=== PATIENT | female | born 1990 | race African-American/Black ===

== ENCOUNTER 2017-01-23 15:13 | Inpatient (IN) | payer MEDICAID ==
[2017-01-23] VITALS (7 sets, daily range): BP systolic 127–158; BP diastolic 70–95
[~2017-01-23] VITALS: Ht 167.6 cm; Wt 62.6 kg
[2017-01-23] MEDS ORDERED: ONDANSETRON HCL 4MG/2ML VIAL IV STA (15:35)
[2017-01-23] MEDS ORDERED: SODIUM CHLORIDE 0.9% 1,000 ML IV ONE (15:35)
[2017-01-23 16:07] LABS: BASOPHILS % 0.9 % (0.0-2.0); EOSINOPHILS % 0.1 % (0.0-5.0); HEMATOCRIT. 56.3 % (36.0-48.0); HEMOGLOBIN. 16.7 g/dL (12.0-16.0); LYMPHOCYTES % 11.1 % (20.0-50.0); MEAN CORPUSCULAR HEMOGLOBIN 29.1 pg (28.0-32.0); MEAN CORPUSCULAR VOLUME 97.9 fL (81.0-99.0); MEAN PLATELET VOLUME 8.7 fl (7.4-10.4); MONOCYTES % 5.6 % (2.0-8.0); NEUTROPHILS % 82.3 % (40.0-76.0); PLATELET 341 x1000/uL (130-400); RED BLOOD CELL COUNT 5.75 mill/uL (4.2-5.4); RED CELL DISTRIBUTION WIDTH 14.1 % (11.6-14.6)
[2017-01-23 16:12] LABS: PROTHROMBIN TIME 10.7 sec (9.4-11.6)
[2017-01-23] MEDS ORDERED: MORPHINE SULFATE 4 MG/ML CPJ (NOT FOR IM USE) IV ONE (17:15)
[2017-01-23 17:22] LABS: CHLORIDE 95 mEq/L (98-107)
[2017-01-23 17:33] LABS: CARBON DIOXIDE 7 mEq/L (21-32)
[2017-01-23 18:01] LABS: BETA HYDROXYBUTYRATE 11.2 mMol/L (0.0-0.3)
[2017-01-23] MEDS ORDERED: INSULIN REGULAR (DRIP) 100 UNITS in SODIUM CHLORIDE 0.9% 100 ML IV ONE (18:15)
[2017-01-23] MEDS ORDERED: MORPHINE SULFATE 10 MG/ML CPJ IV ONE (18:15)
[2017-01-23 18:22] LABS: BG BASE EXCESS -30.6 mmol/L (-2.0-2.0); BG CARBOXYHEMOGLOBIN 0.9 % (0.5-1.5); BG FRACTION INSPIRED OXYGEN 32; BG METHEMOGLOBIN 0.4 % (0.0-1.5); BG OXYHEMOGLOBIN 97.7 % (94.0-97.0); BG PCO2 11.6 mmHg (35.0-45.0); BG PH 6.855 (7.350-7.450); BG PO2 183.9 mmHg (75.0-100.0); BG SAMPLE SITE RIGHT BRACHIAL; BG TOTAL HEMOGLOBIN 15.3 g/dL (12.0-18.0); BG VENT MODE NASAL CANNULA
[2017-01-23] MEDS ORDERED: SODIUM BICARBONATE 8.4% 1 MEQ/ML 50ML SYR IV ONE (18:30)
[2017-01-23] MEDS ORDERED: INSULIN R (DRIP) 100 UNITS in SODIUM CHLORIDE 0.9% 100ML IV PRN (19:00)
[2017-01-23 19:27] LABS: CLARITY URINE CLEAR (CLEAR); COLOR URINE YELLOW (YELLOW); GLUCOSE URINE 3+ (NEGATIVE); KETONES URINE 4+ (NEGATIVE); LEUKOCYTE ESTERASE URINE NEGATIVE (NEGATIVE); NITRITE URINE NEGATIVE (NEGATIVE); OCCULT BLOOD URINE NEGATIVE (NEGATIVE); PROTEIN URINE 2+ (NEGATIVE); SPECIFIC GRAVITY URINE 1.029 (1.005-1.030); UROBILINOGEN URINE 0.2 E.U./dL (0.2-1.0)
[2017-01-23 19:36] LABS: *AMPHETAMINES SCREEN URINE NEGATIVE (NEGATIVE); *BARBITURATES SCREEN URINE NEGATIVE (NEGATIVE); *BENZODIAZEPINES SCREEN URINE NEGATIVE (NEGATIVE); *COCAINE SCREEN URINE NEGATIVE (NEGATIVE); METHADONE URINE SCREEN NEGATIVE (NEGATIVE); PHENCYCLIDINE URINE SCREEN NEGATIVE (NEGATIVE)
[2017-01-23 19:37] LABS: CANNABINOID URINE SCREEN PRESUMTIVE POSITIVE (NEGATIVE); OPIATES URINE SCREEN PRESUMTIVE POSITIVE (NEGATIVE)
[2017-01-23 21:59] LABS: CHLORIDE 104 mEq/L (98-107)
[2017-01-23 22:15] LABS: CARBON DIOXIDE 6 mEq/L (21-32)
[2017-01-23] MEDS: MORPHINE SULFATE 4 MG/ML CPJ (NOT FOR IM USE) IV PRN (22:18)
[2017-01-23] MEDS ORDERED: LIDOCAINE HCL/PF 1% 2ML VIAL ONE (23:21)
[2017-01-23] MEDS ORDERED: DEXTROSE 5% WATER 1,000 ML IV SCH (23:30)
[2017-01-23] MEDS ORDERED: ACETAMINOPHEN 325MG TABLET PO PRN (23:30)
[2017-01-23] MEDS ORDERED: ONDANSETRON HCL 4MG/2ML VIAL IV PRN (23:30)
[2017-01-24] VITALS (36 sets, daily range): BP systolic 94–131; BP diastolic 47–107
[2017-01-24] MEDS: SODIUM BICARBONATE 100 MEQ in DEXTROSE 5% WATER 1,000 ML IV SCH ×2 (00:58→10:53)
[2017-01-24 01:08] LABS: CHLORIDE 110 mEq/L (98-107)
[2017-01-24 01:26] LABS: CARBON DIOXIDE 10 mEq/L (21-32)
[2017-01-24 02:08] LABS: BG BASE EXCESS -18.9 mmol/L (-2.0-2.0); BG CARBOXYHEMOGLOBIN 0.9 % (0.5-1.5); BG FRACTION INSPIRED OXYGEN 21; BG METHEMOGLOBIN 0.3 % (0.0-1.5); BG OXYHEMOGLOBIN 96.8 % (94.0-97.0); BG PCO2 23.3 mmHg (35.0-45.0); BG PH 7.156 (7.350-7.450); BG PO2 108.4 mmHg (75.0-100.0); BG SAMPLE SITE RIGHT RADIAL; BG VENT MODE ROOM AIR
[2017-01-24] MEDS: MORPHINE SULFATE 4 MG/ML CPJ (NOT FOR IM USE) IV PRN ×4 (02:29→16:50)
[2017-01-24 05:39] LABS: BASOPHILS % 0.2 % (0.0-2.0); EOSINOPHILS % 0.1 % (0.0-5.0); HEMATOCRIT. 40.7 % (36.0-48.0); LYMPHOCYTES % 10.7 % (20.0-50.0); MEAN CORPUSCULAR HEMOGLOBIN 28.4 pg (28.0-32.0); MEAN CORPUSCULAR VOLUME 89.1 fL (81.0-99.0); MEAN PLATELET VOLUME 7.9 fl (7.4-10.4); PLATELET 246 x1000/uL (130-400); RED BLOOD CELL COUNT 4.57 mill/uL (4.2-5.4); RED CELL DISTRIBUTION WIDTH 13.2 % (11.6-14.6)
[2017-01-24 06:02] LABS: CARBON DIOXIDE 12 mEq/L (21-32); CHLORIDE 108 mEq/L (98-107); HDL CHOLESTEROL 107 mg/dL (40-59); LDL CHOLESTEROL 42 mg/dL (5-100)
[2017-01-24] MEDS: ENOXAPARIN 40MG/0.4ML SYR SUBCUT SCH (09:00)
[2017-01-24 09:11] LABS: CHLORIDE 107 mEq/L (98-107)
[2017-01-24 09:18] LABS: CARBON DIOXIDE 18 mEq/L (21-32)
[2017-01-24] MEDS ORDERED: DEXTROSE 50% WATER 50ML SYRINGE IV PRN ×3 (10:15→18:45)
[2017-01-24] MEDS: BLOOD SUGAR DIAGNOSTIC STRIP TEST SCH ×4 (10:15→21:37)
[2017-01-24] MEDS ORDERED: INSULIN REGULAR (DRIP) 100 UNITS in SODIUM CHLORIDE 0.9% 100 ML IV SCH (11:00)
[2017-01-24 11:47] LABS: BG BASE EXCESS -10.4 mmol/L (-2.0-2.0); BG CARBOXYHEMOGLOBIN 0.7 % (0.5-1.5); BG DEOXYHEMOGLOBIN 1.8 % (0.0-5.0); BG FRACTION INSPIRED OXYGEN 21; BG HCO3 ACT 14.1 mmol/L (22.0-26.0); BG METHEMOGLOBIN 0.3 % (0.0-1.5); BG OXYGEN SATURATION 98.2 % (92.0-98.5); BG OXYHEMOGLOBIN 97.2 % (94.0-97.0); BG PCO2 27.8 mmHg (35.0-45.0); BG PH 7.322 (7.350-7.450); BG PO2 102.6 mmHg (75.0-100.0); BG SAMPLE SITE RIGHT RADIAL; BG TOTAL HEMOGLOBIN 13.3 g/dL (12.0-18.0); BG VENT MODE ROOM AIR
[2017-01-24 12:39] LABS: CARBON DIOXIDE 17 mEq/L (21-32); CHLORIDE 105 mEq/L (98-107)
[2017-01-24] MEDS ORDERED: POTASSIUM CHLORIDE INJ 40 MEQ in DEXT 5% WATER 250 ML IV NR (13:00)
[2017-01-24 16:56] LABS: CARBON DIOXIDE 22 mEq/L (21-32); CHLORIDE 105 mEq/L (98-107)
[2017-01-24] MEDS ORDERED: POTASSIUM CHLORIDE 20MEQ/PACKET PO NR (19:00)
[2017-01-24] MEDS: SODIUM CHLORIDE 0.9% 1,000 ML IV SCH (19:26)
[2017-01-24] MEDS: INSULIN DETEMIR UD 100 UNITS/ML SYR SUBCUT SCH (20:56)
[2017-01-24] MEDS: INSULIN LISPRO 100 UNITS/ML SUBCUT SCH (21:01)
[2017-01-24] MEDS: LORAZEPAM 2MG/ML CPJ IV PRN (21:04)
[2017-01-24] MEDS ORDERED: INSULIN DETEMIR UD 100 UNITS/ML SYR SUBCUT SCH (22:00)
[2017-01-25] VITALS (26 sets, daily range): BP systolic 92–143; BP diastolic 58–89
[2017-01-25] MEDS: MORPHINE SULFATE 10 MG/ML CPJ IV PRN ×5 (00:29→18:16)
[2017-01-25 02:26] LABS: HEMATOCRIT. 40.6 % (36.0-48.0); HEMOGLOBIN. 13.6 g/dL (12.0-16.0); MEAN CORPUSCULAR HEMOGLOBIN 28.4 pg (28.0-32.0); MEAN CORPUSCULAR VOLUME 84.8 fL (81.0-99.0); PLATELET 234 x1000/uL (130-400); RED BLOOD CELL COUNT 4.78 mill/uL (4.2-5.4)
[2017-01-25 02:50] LABS: CARBON DIOXIDE 21 mEq/L (21-32); CHLORIDE 106 mEq/L (98-107)
[2017-01-25] MEDS: INSULIN LISPRO 100 UNITS/ML SUBCUT SCH ×7 (06:22→21:54)
[2017-01-25] MEDS: BLOOD SUGAR DIAGNOSTIC STRIP TEST SCH ×4 (06:23→21:54)
[2017-01-25 07:56] LABS: PLATELET ESTIMATE NORMAL
[2017-01-25 08:14] LABS: EOSINOPHILS % 0.4 % (0.0-5.0); HEMATOCRIT. 41.9 % (36.0-48.0); HEMOGLOBIN. 14.3 g/dL (12.0-16.0); LYMPHOCYTES % 17.5 % (20.0-50.0); MEAN CORPUSCULAR HEMOGLOBIN 29.4 pg (28.0-32.0); MEAN CORPUSCULAR VOLUME 86.1 fL (81.0-99.0); MEAN PLATELET VOLUME 7.2 fl (7.4-10.4); MONOCYTES % 5.7 % (2.0-8.0); NEUTROPHILS % 75.4 % (40.0-76.0); PLATELET 200 x1000/uL (130-400); RED BLOOD CELL COUNT 4.86 mill/uL (4.2-5.4); RED CELL DISTRIBUTION WIDTH 13.1 % (11.6-14.6)
[2017-01-25 08:40] LABS: CARBON DIOXIDE 23 mEq/L (21-32); CHLORIDE 105 mEq/L (98-107)
[2017-01-25] MEDS: ENOXAPARIN 40MG/0.4ML SYR SUBCUT SCH (09:26)
[2017-01-25] MEDS: SODIUM CHLORIDE 0.9% 1,000 ML IV SCH ×2 (12:01→18:45)
[2017-01-25] MEDS: LORAZEPAM 2MG/ML CPJ IV PRN (21:49)
[2017-01-25] MEDS: INSULIN DETEMIR UD 100 UNITS/ML SYR SUBCUT SCH (21:54)
[2017-01-26] VITALS (7 sets, daily range): BP systolic 93–139; BP diastolic 59–86
[2017-01-26] MEDS: SODIUM CHLORIDE 0.9% 1,000 ML IV SCH ×2 (01:45→14:32)
[2017-01-26] MEDS: MORPHINE SULFATE 10 MG/ML CPJ IV PRN ×3 (01:45→16:03)
[2017-01-26] MEDS: BLOOD SUGAR DIAGNOSTIC STRIP TEST SCH ×2 (06:41→12:20)
[2017-01-26] MEDS: INSULIN LISPRO 100 UNITS/ML SUBCUT SCH ×4 (08:15→14:36)
[2017-01-26] MEDS: ENOXAPARIN 40MG/0.4ML SYR SUBCUT SCH (10:07)
== END 2017-01-26 18:05 | disposition home or self-care (01) | DRG 282 ==
LOC: ER 15:33 → MICUSO 18:56 → EDBEDREQTM 19:00 → EDBEDREQ 19:00 → ENRESERV 19:40 → MICUSO 20:30 → 6EST 01-25 17:51
PROVIDERS: ADMIT Internal Medicine; ATTEND Internal Medicine
DX: K85.90 Acute pancreatitis without necrosis or infection, unspecified (principal); E10.10 Type 1 diabetes mellitus with ketoacidosis without coma; Z83.3 Family history of diabetes mellitus; F32.9 Major depressive disorder, single episode, unspecified; D72.829 Elevated white blood cell count, unspecified; R00.0 Tachycardia, unspecified; F10.21 Alcohol dependence, in remission; F41.9 Anxiety disorder, unspecified; Z79.4 Long term (current) use of insulin
CPT/HCPCS: 36415; 36600; 74022; 80048; 80053; 80061; 80305; 80320; 81001; 82010; 82375; 82805; 82962; 83690; 85007; 85025; 85027; 85610; 87040; 87077; 87086; 93970; 96365; 96375; 99291; J1650; J1815; J2060; J2270; J2405; J3480; J3490; J7030; J7040; J7042; J7050; J7060; J7070

== ENCOUNTER 2017-05-14 10:08 | Inpatient (IN) | payer OTHER ==
[~2017-05-14] VITALS: Ht 160 cm; Wt 61.7 kg
[2017-05-14] VITALS (11 sets, daily range): BP systolic 110–141; BP diastolic 61–91
[~2017-05-14 10:08] MED LIST: AMOX500T2 PO
[2017-05-14] MEDS ORDERED: SODIUM CHLORIDE 0.9% 1,000 ML IV ONE (10:35)
[2017-05-14] MEDS ORDERED: LIDOCAINE HCL/PF 1% 2ML VIAL ONE (10:35)
[2017-05-14] MEDS ORDERED: ONDANSETRON HCL 4MG/2ML VIAL IV STA (10:35)
[2017-05-14 11:07] LABS: BASOPHILS % 0.6 % (0.0-2.0); EOSINOPHILS % 0.2 % (0.0-5.0); HEMATOCRIT. 48.5 % (36.0-48.0); LYMPHOCYTES % 10.1 % (20.0-50.0); MEAN CORPUSCULAR HEMOGLOBIN 27.7 pg (28.0-32.0); MEAN CORPUSCULAR VOLUME 89.8 fL (81.0-99.0); MEAN PLATELET VOLUME 7.7 fl (7.4-10.4); MONOCYTES % 3.6 % (2.0-8.0); NEUTROPHILS % 85.5 % (40.0-76.0); PLATELET 400 x1000/uL (130-400); RED BLOOD CELL COUNT 5.41 mill/uL (4.2-5.4); RED CELL DISTRIBUTION WIDTH 14.3 % (11.6-14.6)
[2017-05-14 11:13] LABS: BG BASE EXCESS -21.9 mmol/L (-2.0-2.0); BG CARBOXYHEMOGLOBIN 0.4 % (0.5-1.5); BG DEOXYHEMOGLOBIN 1.9 % (0.0-5.0); BG FRACTION INSPIRED OXYGEN 21; BG HCO3 ACT 4.3 mmol/L (22.0-26.0); BG METHEMOGLOBIN 0.5 % (0.0-1.5); BG OXYGEN SATURATION 98.1 % (92.0-98.5); BG OXYHEMOGLOBIN 97.2 % (94.0-97.0); BG PCO2 12.5 mmHg (35.0-45.0); BG PH 7.155 (7.350-7.450); BG PO2 133.2 mmHg (75.0-100.0); BG SAMPLE SITE RIGHT BRACHIAL; BG TOTAL HEMOGLOBIN 14.4 g/dL (12.0-18.0); BG VENT MODE ROOM AIR
[2017-05-14 11:18] LABS: CHLORIDE 99 mEq/L (98-107); ETHANOL BLOOD < 10 mg/dL
[2017-05-14] MEDS ORDERED: INSULIN REGULAR (DRIP) 100 UNITS in SODIUM CHLORIDE 0.9% 100 ML IV ONE ×2 (11:28→12:00)
[2017-05-14] MEDS ORDERED: MAGNESIUM/ALUMINUM HYDROXIDE/SIMETHICONE 30ML UDC PO STA (11:28)
[2017-05-14] MEDS ORDERED: PANTOPRAZOLE SODIUM 40 MG/VIAL IV ONE (11:30)
[2017-05-14 11:59] LABS: PHOSPHORUS 3.5 mg/dL (2.5-4.9)
[2017-05-14 12:46] LABS: CLARITY URINE CLEAR (CLEAR); COLOR URINE YELLOW (YELLOW); KETONES URINE 4+ (NEGATIVE); LEUKOCYTE ESTERASE URINE NEGATIVE (NEGATIVE); NITRITE URINE NEGATIVE (NEGATIVE); OCCULT BLOOD URINE NEGATIVE (NEGATIVE); PROTEIN URINE 1+ (NEGATIVE); SPECIFIC GRAVITY URINE 1.034 (1.005-1.030); UROBILINOGEN URINE 0.2 E.U./dL (0.2-1.0)
[2017-05-14 13:22] LABS: *COCAINE SCREEN URINE NEGATIVE (NEGATIVE); METHADONE URINE SCREEN NEGATIVE (NEGATIVE); OPIATES URINE SCREEN NEGATIVE (NEGATIVE); PHENCYCLIDINE URINE SCREEN NEGATIVE (NEGATIVE)
[2017-05-14 13:26] LABS: *AMPHETAMINES SCREEN URINE NEGATIVE (NEGATIVE); *BARBITURATES SCREEN URINE NEGATIVE (NEGATIVE); *BENZODIAZEPINES SCREEN URINE NEGATIVE (NEGATIVE)
[2017-05-14 13:45] LABS: CANNABINOID URINE SCREEN PRESUMTIVE POSITIVE (NEGATIVE)
[2017-05-14] MEDS ORDERED: ACETAMINOPHEN 325MG TABLET PO PRN (15:15)
[2017-05-14] MEDS ORDERED: ONDANSETRON HCL 4MG/2ML VIAL IV PRN (15:15)
[2017-05-14] MEDS ORDERED: MORPHINE SULFATE 4 MG/ML CPJ (NOT FOR IM USE) IV PRN (15:15)
[2017-05-14] MEDS ORDERED: SODIUM BICARBONATE 100 MEQ in SODIUM CHLORIDE 0.45% 1,000 ML IV SCH (17:00)
[2017-05-14 17:50] LABS: CHLORIDE 108 mEq/L (98-107)
[2017-05-14] MEDS: SODIUM BICARBONATE 100 MEQ in DEXTROSE 5% WATER 1,000 ML IV SCH (18:40)
[2017-05-14] MEDS: CLINDAMYCIN 600MG PREMIX 50 ML IV SCH (18:42)
[2017-05-14 19:27] LABS: UCG SCREEN NEGATIVE
[2017-05-14] MEDS: HYDROMORPHONE HCL/PF 2MG/ML CPJ IM PRN (20:04)
[2017-05-14 21:28] LABS: CHLORIDE 107 mEq/L (98-107)
[2017-05-14] MEDS: VISCOUS LIDOCAINE 2% 15 ML UDC MM PRN (23:04)
[2017-05-15] VITALS (25 sets, daily range): BP systolic 92–134; BP diastolic 31–79
[2017-05-15 00:55] LABS: CHLORIDE 104 mEq/L (98-107)
[2017-05-15] MEDS: CLINDAMYCIN 600MG PREMIX 50 ML IV SCH ×3 (01:03→19:15)
[2017-05-15] MEDS: HYDROMORPHONE HCL/PF 2MG/ML CPJ IM PRN ×4 (02:29→23:07)
[2017-05-15] MEDS: SODIUM BICARBONATE 100 MEQ in DEXTROSE 5% WATER 1,000 ML IV SCH ×2 (03:30→09:09)
[2017-05-15 05:41] LABS: BASOPHILS % 0.6 % (0.0-2.0); EOSINOPHILS % 1.4 % (0.0-5.0); HEMATOCRIT. 38.5 % (36.0-48.0); HEMOGLOBIN. 12.3 g/dL (12.0-16.0); LYMPHOCYTES % 23.1 % (20.0-50.0); MEAN CORPUSCULAR HEMOGLOBIN 27.5 pg (28.0-32.0); MEAN CORPUSCULAR VOLUME 85.6 fL (81.0-99.0); MEAN PLATELET VOLUME 7.1 fl (7.4-10.4); MONOCYTES % 10.6 % (2.0-8.0); NEUTROPHILS % 64.3 % (40.0-76.0); PLATELET 301 x1000/uL (130-400); RED BLOOD CELL COUNT 4.49 mill/uL (4.2-5.4); RED CELL DISTRIBUTION WIDTH 13.5 % (11.6-14.6)
[2017-05-15 05:49] LABS: CHLORIDE 104 mEq/L (98-107)
[2017-05-15 08:53] LABS: CHLORIDE 99 mEq/L (98-107)
[2017-05-15] MEDS ORDERED: DEXTROSE 50% WATER 50ML SYRINGE IV PRN (09:30)
[2017-05-15] MEDS ORDERED: POTASSIUM CHLORIDE 20MEQ TABLET SR PO NR ×2 (10:00→11:00)
[2017-05-15] MEDS: SODIUM CHLORIDE 0.9% 1,000 ML IV SCH (10:09)
[2017-05-15] MEDS: INSULIN GLARGINE UD 100 UNITS/ML SYR SUBCUT SCH (10:54)
[2017-05-15 11:14] LABS: PHOSPHORUS 2.2 mg/dL (2.5-4.9)
[2017-05-15] MEDS ORDERED: INSULIN LISPRO 100 UNITS/ML SUBCUT NR (12:00)
[2017-05-15] MEDS: BLOOD SUGAR DIAGNOSTIC STRIP TEST SCH ×3 (13:11→21:00)
[2017-05-15] MEDS: INSULIN LISPRO 100 UNITS/ML SUBCUT SCH ×3 (13:20→23:09)
[2017-05-15 15:47] LABS: CHLORIDE 99 mEq/L (98-107)
[2017-05-15] MEDS ORDERED: PANTOPRAZOLE SODIUM 40 MG/VIAL IV SCH (18:00)
[2017-05-15] MEDS ORDERED: MAGNESIUM 1 G PREMIX 100 ML IV NR (20:30)
[2017-05-15] MEDS ORDERED: POTASSIUM PHOS,M-BASIC-D-BASIC 10 MMOL in DEXT 5% WATER 246.6667 ML IV NR (21:00)
[2017-05-16] VITALS (14 sets, daily range): BP systolic 101–132; BP diastolic 58–94
[2017-05-16] MEDS: SODIUM CHLORIDE 0.9% 1,000 ML IV SCH ×2 (03:10→12:01)
[2017-05-16] MEDS: CLINDAMYCIN 600MG PREMIX 50 ML IV SCH ×2 (03:11→10:46)
[2017-05-16 05:39] LABS: BASOPHILS % 0.5 % (0.0-2.0); EOSINOPHILS % 2.3 % (0.0-5.0); LYMPHOCYTES % 24.4 % (20.0-50.0); MEAN CORPUSCULAR HEMOGLOBIN 27.8 pg (28.0-32.0); MEAN CORPUSCULAR VOLUME 85.8 fL (81.0-99.0); MEAN PLATELET VOLUME 7.1 fl (7.4-10.4); MONOCYTES % 9.8 % (2.0-8.0); PLATELET 244 x1000/uL (130-400); RED BLOOD CELL COUNT 4.31 mill/uL (4.2-5.4); RED CELL DISTRIBUTION WIDTH 13.7 % (11.6-14.6)
[2017-05-16 06:15] LABS: CHLORIDE 106 mEq/L (98-107)
[2017-05-16 06:21] LABS: PHOSPHORUS 3.7 mg/dL (2.5-4.9)
[2017-05-16] MEDS ORDERED: POTASSIUM CHLORIDE 20MEQ TABLET SR PO NR (07:00)
[2017-05-16] MEDS: BLOOD SUGAR DIAGNOSTIC STRIP TEST SCH ×2 (07:50→12:07)
[2017-05-16] MEDS: HYDROMORPHONE HCL/PF 2MG/ML CPJ IM PRN ×2 (08:15→14:05)
[2017-05-16] MEDS: INSULIN LISPRO 100 UNITS/ML SUBCUT SCH ×2 (08:23→12:12)
[2017-05-16] MEDS: INSULIN GLARGINE UD 100 UNITS/ML SYR SUBCUT SCH (10:46)
[2017-05-16] MEDS: VISCOUS LIDOCAINE 2% 15 ML UDC MM PRN (12:11)
[2017-05-16] MEDS ORDERED: CLIN300C11 PO (14:03)
== END 2017-05-16 16:38 | disposition home or self-care (01) | DRG 720 ==
LOC: ER 10:08 → CVICU 11:39 → EDBEDREQ 11:46 → ENRESERV 13:37 → 8WST 05-16 11:31
PROVIDERS: ADMIT Internal Medicine; ATTEND Internal Medicine
PROC: 05H933Z Insertion of Infusion Device into Right Brachial Vein, Percutaneous Approach (ICD-10-PCS; principal; 2017-05-15)
PROC: B54MZZA Ultrasonography of Right Upper Extremity Veins, Guidance (ICD-10-PCS; 2017-05-15)
DX: A41.9 Sepsis, unspecified organism (principal); E10.10 Type 1 diabetes mellitus with ketoacidosis without coma; E87.1 Hypo-osmolality and hyponatremia; K04.7 Periapical abscess without sinus; Z79.4 Long term (current) use of insulin; Z83.3 Family history of diabetes mellitus; Z91.410 Personal history of adult physical and sexual abuse; Z91.19 Patient's noncompliance with other medical treatment and regimen; Z79.899 Other long term (current) drug therapy
CPT/HCPCS: 36415; 36569; 36600; 70486; 71045; 76937; 80048; 80053; 80305; 81003; 81025; 82010; 82375; 82805; 82962; 83690; 83735; 84100; 85025; 85610; 87040; 87086; 93005; 96361; 96365; 96366; 96375; 99291; C1725; C1893; C9113; G0482; J1170; J1815; J2270; J2405; J3475; J3490; J7030; J7050; J7060; J7070

== ENCOUNTER 2017-07-10 09:31 | Inpatient (IN) | payer MEDICAID, OTHER ==
[~2017-07-10] VITALS: Ht 160 cm; Wt 64.4 kg
[2017-07-10] VITALS (12 sets, daily range): BP systolic 114–140; BP diastolic 54–89
[~2017-07-10 09:31] MED LIST changes: +CLIN300C11 PO
[2017-07-10] MEDS ORDERED: SODIUM CHLORIDE 0.9% 1000ML BAG (SEPSIS BOLUS) IV ONE (09:45)
[2017-07-10 10:04] LABS: BG BASE EXCESS -28.7 mmol/L (-2.0-2.0); BG CARBOXYHEMOGLOBIN 0.8 % (0.5-1.5); BG DEOXYHEMOGLOBIN 1.4 % (0.0-5.0); BG FRACTION INSPIRED OXYGEN 21; BG METHEMOGLOBIN 0.4 % (0.0-1.5); BG OXYGEN SATURATION 98.6 % (92.0-98.5); BG OXYHEMOGLOBIN 97.4 % (94.0-97.0); BG PCO2 9.4 mmHg (35.0-45.0); BG PH 6.938 (7.350-7.450); BG PO2 158.8 mmHg (75.0-100.0); BG SAMPLE SITE RIGHT BRACHIAL; BG TOTAL HEMOGLOBIN 16.1 g/dL (12.0-18.0); BG VENT MODE ROOM AIR
[2017-07-10] MEDS ORDERED: SODIUM CHLORIDE 0.9% 1,000 ML IV ONE (10:07)
[2017-07-10 10:15] LABS: CLARITY URINE CLEAR (CLEAR); COLOR URINE YELLOW (YELLOW); KETONES URINE 4+ (NEGATIVE); LEUKOCYTE ESTERASE URINE NEGATIVE (NEGATIVE); NITRITE URINE NEGATIVE (NEGATIVE); OCCULT BLOOD URINE TRACE (NEGATIVE); PROTEIN URINE 2+ (NEGATIVE); SPECIFIC GRAVITY URINE 1.034 (1.005-1.030); UROBILINOGEN URINE 0.2 E.U./dL (0.2-1.0)
[2017-07-10] MEDS ORDERED: SODIUM BICARBONATE 8.4% 1 MEQ/ML 50ML SYR IV ONE (10:15)
[2017-07-10] MEDS ORDERED: INSULIN REGULAR (DRIP) 100 UNITS in SODIUM CHLORIDE 0.9% 100 ML IV ONE (10:15)
[2017-07-10] MEDS ORDERED: INSULIN REGULAR (DRIP) 100 UNITS in SODIUM CHLORIDE 0.9% 100 ML IV SCH ×2 (10:30→11:45)
[2017-07-10 10:32] LABS: BASOPHILS % 0.7 % (0.0-2.0); EOSINOPHILS % 0.2 % (0.0-5.0); HEMATOCRIT. 52.9 % (36.0-48.0); HEMOGLOBIN. 15.2 g/dL (12.0-16.0); LYMPHOCYTES % 13.6 % (20.0-50.0); MEAN CORPUSCULAR HEMOGLOBIN 27.8 pg (28.0-32.0); MEAN CORPUSCULAR VOLUME 97.1 fL (81.0-99.0); MEAN PLATELET VOLUME 8.3 fl (7.4-10.4); MONOCYTES % 4.8 % (2.0-8.0); NEUTROPHILS % 80.7 % (40.0-76.0); PLATELET 471 x1000/uL (130-400); RED BLOOD CELL COUNT 5.45 mill/uL (4.2-5.4); RED CELL DISTRIBUTION WIDTH 15.9 % (11.6-14.6)
[2017-07-10 10:34] LABS: CHLORIDE 93 mEq/L (98-107)
[2017-07-10 10:38] LABS: ETHANOL BLOOD < 10 mg/dL
[2017-07-10 10:40] LABS: PARTIAL THROMBOPLASTIN TIME 37.8 sec (23.4-31.0); PHOSPHORUS 7.6 mg/dL (2.5-4.9); PROTHROMBIN TIME 10.6 sec (9.4-11.6)
[2017-07-10 10:42] LABS: *COCAINE SCREEN URINE NEGATIVE (NEGATIVE); METHADONE URINE SCREEN NEGATIVE (NEGATIVE); OPIATES URINE SCREEN NEGATIVE (NEGATIVE); PHENCYCLIDINE URINE SCREEN NEGATIVE (NEGATIVE)
[2017-07-10 10:43] LABS: *AMPHETAMINES SCREEN URINE NEGATIVE (NEGATIVE); *BARBITURATES SCREEN URINE NEGATIVE (NEGATIVE); *BENZODIAZEPINES SCREEN URINE NEGATIVE (NEGATIVE)
[2017-07-10 10:52] LABS: CANNABINOID URINE SCREEN PRESUMTIVE POSITIVE (NEGATIVE)
[2017-07-10] MEDS ORDERED: SODIUM BICARBONATE 100 MEQ in SODIUM CHLORIDE 0.45% 1,000 ML IV SCH (11:00)
[2017-07-10 11:14] LABS: HCG SCREEN NEGATIVE
[2017-07-10] MEDS ORDERED: CEFTRIAXONE 1 G PREMIX 50 ML IV ONE (11:15)
[2017-07-10] MEDS ORDERED: KETOROLAC 30MG/ML VIAL IV ONE (11:30)
[2017-07-10] MEDS ORDERED: IPRATROPIUM/ALBUTEROL 0.5-3(2.5)MG/3ML NEB INH PRN (11:45)
[2017-07-10] MEDS ORDERED: ONDANSETRON HCL 4MG/2ML VIAL IV PRN (11:45)
[2017-07-10] MEDS ORDERED: SODIUM CHLORIDE 0.9% 1,000 ML IV SCH (11:45)
[2017-07-10 12:20] LABS: BETA HYDROXYBUTYRATE 12.3 mMol/L (0.0-0.3)
[2017-07-10 12:22] LABS: CHLORIDE 104 mEq/L (98-107)
[2017-07-10] MEDS ORDERED: ONDANSETRON HCL 4MG/2ML VIAL IV ONE (12:45)
[2017-07-10] MEDS ORDERED: MORPHINE SULFATE 4 MG/ML CPJ (NOT FOR IM USE) IV ONE (12:45)
[2017-07-10] MEDS ORDERED: HYDROCODONE/ACETAMINOPHEN 5/325MG TABLET PO PRN (14:30)
[2017-07-10 15:40] LABS: CREATINE KINASE 51 IU/L (26-192)
[2017-07-10 15:41] LABS: CREATINE KINASE MB FRACTION 1.3 ng/mL (0.5-3.6)
[2017-07-10] MEDS: LORAZEPAM 2MG/ML CPJ IV PRN (17:16)
[2017-07-10] MEDS: POTASSIUM CHLORIDE INJ 20 MEQ in DEXT 5%/0.9% NACL 1,000 ML IV SCH (17:17)
[2017-07-10] MEDS ORDERED: DEXTROSE 50% WATER 50ML SYRINGE IV PRN ×2 (20:00)
[2017-07-10] MEDS ORDERED: INSULIN REGULAR (DRIP) 100 UNITS in SODIUM CHLORIDE 0.9% 99 ML IV SCH (20:00)
[2017-07-10] MEDS: BLOOD SUGAR DIAGNOSTIC STRIP TEST SCH ×4 (20:13→23:00)
[2017-07-10] MEDS: ENOXAPARIN 40MG/0.4ML SYR SUBCUT SCH (20:35)
[2017-07-10 21:34] LABS: CHLORIDE 110 mEq/L (98-107)
[2017-07-10] MEDS ORDERED: PNEUMOCOCCAL 23-VAL P-SAC VAC 0.5 ML IM ONE (22:00)
[2017-07-11] VITALS (46 sets, daily range): BP systolic 107–147; BP diastolic 62–110
[2017-07-11] MEDS: BLOOD SUGAR DIAGNOSTIC STRIP TEST SCH ×16 (00:08→20:00)
[2017-07-11 00:19] LABS: CREATINE KINASE 46 IU/L (26-192)
[2017-07-11 00:20] LABS: CREATINE KINASE MB FRACTION 1.5 ng/mL (0.5-3.6)
[2017-07-11 01:01] LABS: CHLORIDE 116 mEq/L (98-107)
[2017-07-11] MEDS: POTASSIUM CHLORIDE INJ 20 MEQ in DEXT 5%/0.9% NACL 1,000 ML IV SCH ×2 (01:46→09:12)
[2017-07-11 06:05] LABS: CHLORIDE 113 mEq/L (98-107)
[2017-07-11] MEDS ORDERED: SODIUM BICARBONATE 8.4% 1 MEQ/ML 50ML SYR IV NR (07:00)
[2017-07-11] MEDS: MORPHINE SULFATE 4 MG/ML CPJ (NOT FOR IM USE) IV PRN ×4 (07:08→21:28)
[2017-07-11] MEDS ORDERED: VANCOMYCIN 1,250 MG in DEXT 5% WATER 250 ML IV SCH (09:00)
[2017-07-11] MEDS: LORAZEPAM 2MG/ML CPJ IV PRN ×2 (09:32→23:28)
[2017-07-11 09:33] LABS: BG BASE EXCESS -6.9 mmol/L (-2.0-2.0); BG CARBOXYHEMOGLOBIN 0.8 % (0.5-1.5); BG DEOXYHEMOGLOBIN 1.4 % (0.0-5.0); BG FRACTION INSPIRED OXYGEN 21; BG HCO3 ACT 17.4 mmol/L (22.0-26.0); BG METHEMOGLOBIN 0.2 % (0.0-1.5); BG OXYGEN SATURATION 98.6 % (92.0-98.5); BG OXYHEMOGLOBIN 97.6 % (94.0-97.0); BG PCO2 31.4 mmHg (35.0-45.0); BG PH 7.362 (7.350-7.450); BG SAMPLE SITE RIGHT BRACHIAL; BG TOTAL HEMOGLOBIN 12.6 g/dL (12.0-18.0); BG VENT MODE ROOM AIR
[2017-07-11] MEDS: PIPERACILLIN/TAZ 3.375G PREMIX 50 ML IV SCH ×2 (09:55→17:22)
[2017-07-11] MEDS ORDERED: DEXTROSE 50% WATER 50ML SYRINGE IV PRN (13:15)
[2017-07-11 13:27] LABS: CHLORIDE 110 mEq/L (98-107)
[2017-07-11 14:01] LABS: HEMATOCRIT. 36.1 % (36.0-48.0); HEMOGLOBIN. 11.6 g/dL (12.0-16.0); MEAN CORPUSCULAR VOLUME 87.1 fL (81.0-99.0); PLATELET 267 x1000/uL (130-400); RED BLOOD CELL COUNT 4.14 mill/uL (4.2-5.4); RED CELL DISTRIBUTION WIDTH 15.4 % (11.6-14.6)
[2017-07-11] MEDS: INSULIN GLARGINE UD 100 UNITS/ML SYR SUBCUT SCH (14:12)
[2017-07-11] MEDS: INSULIN LISPRO 100 UNITS/ML SUBCUT SCH ×2 (14:12→17:25)
[2017-07-11] MEDS: VANCOMYCIN 1250MG in DEXTROSE 5% WATER 250ML IV SCH ×2 (16:56→23:33)
[2017-07-11] MEDS: ENOXAPARIN 40MG/0.4ML SYR SUBCUT SCH (17:22)
[2017-07-11 19:07] LABS: CHLORIDE 105 mEq/L (98-107)
[2017-07-11 23:35] LABS: PLATELET ESTIMATE NORMAL
[2017-07-12] VITALS (30 sets, daily range): BP systolic 109–135; BP diastolic 61–88
[2017-07-12 01:22] LABS: CHLORIDE 111 mEq/L (98-107)
[2017-07-12] MEDS: MORPHINE SULFATE 4 MG/ML CPJ (NOT FOR IM USE) IV PRN ×3 (02:21→15:05)
[2017-07-12] MEDS: PIPERACILLIN/TAZ 3.375G PREMIX 50 ML IV SCH ×3 (02:21→18:04)
[2017-07-12] MEDS: INSULIN LISPRO 100 UNITS/ML SUBCUT SCH ×5 (04:00→17:59)
[2017-07-12] MEDS: BLOOD SUGAR DIAGNOSTIC STRIP TEST SCH ×6 (04:52→17:13)
[2017-07-12 05:32] LABS: BASOPHILS % 0.3 % (0.0-2.0); EOSINOPHILS % 1.3 % (0.0-5.0); HEMATOCRIT. 32.9 % (36.0-48.0); HEMOGLOBIN. 11.1 g/dL (12.0-16.0); LYMPHOCYTES % 25.5 % (20.0-50.0); MEAN CORPUSCULAR HEMOGLOBIN 28.8 pg (28.0-32.0); MEAN CORPUSCULAR VOLUME 85.8 fL (81.0-99.0); MEAN PLATELET VOLUME 7.1 fl (7.4-10.4); MONOCYTES % 9.5 % (2.0-8.0); NEUTROPHILS % 63.4 % (40.0-76.0); PLATELET 221 x1000/uL (130-400); RED BLOOD CELL COUNT 3.83 mill/uL (4.2-5.4); RED CELL DISTRIBUTION WIDTH 14.9 % (11.6-14.6)
[2017-07-12 05:51] LABS: CHLORIDE 108 mEq/L (98-107)
[2017-07-12] MEDS: VANCOMYCIN 1250MG in DEXTROSE 5% WATER 250ML IV SCH ×2 (08:17→15:10)
[2017-07-12] MEDS ORDERED: LORAZEPAM 0.5MG TABLET PO PRN (08:30)
[2017-07-12] MEDS ORDERED: OXYCODONE HCL/ACETAMINOPHEN 5/325MG TABLET PO PRN (08:30)
[2017-07-12] MEDS ORDERED: POTASSIUM CHLORIDE 20MEQ/PACKET PO SCH (08:30)
[2017-07-12] MEDS ORDERED: NON FORMULARY PATIENT HOME MED EA XX SCH (08:30)
[2017-07-12] MEDS ORDERED: PANTOPRAZOLE SODIUM 40 MG/VIAL IV SCH (09:00)
[2017-07-12] MEDS ORDERED: SODIUM CHLORIDE 0.45% 1,000 ML IV SCH (09:00)
[2017-07-12] MEDS ORDERED: QUETIAPINE FUMARATE 50MG TABLET PO SCH (09:00)
[2017-07-12] MEDS: INSULIN GLARGINE UD 100 UNITS/ML SYR SUBCUT SCH (10:19)
[2017-07-12] MEDS: METHYLPHENIDATE HCL 5MG TABLET PO SCH ×2 (11:13→15:10)
[2017-07-12] MEDS: CLINDAMYCIN HCL 150MG CAPSULE PO SCH ×2 (12:24→18:04)
[2017-07-12 15:23] LABS: CHLORIDE 106 mEq/L (98-107)
[2017-07-12] MEDS: LORAZEPAM 2MG/ML CPJ IV PRN (17:56)
[2017-07-12] MEDS: ENOXAPARIN 40MG/0.4ML SYR SUBCUT SCH (18:00)
[2017-07-12] MEDS ORDERED: INSULIN GLARGINE UD 100 UNITS/ML SYR SUBCUT SCH (22:00)
== END 2017-07-12 19:40 | disposition left against medical advice (07) | DRG 52 ==
LOC: ER 09:43 → MICUNO 10:23 → EDBEDREQ 10:28 → EDBEDREQTM 10:28 → ENRESERV 17:17 → 6EST 07-12 15:30
PROVIDERS: ADMIT Internal Medicine; ATTEND Internal Medicine
DX: G93.41 Metabolic encephalopathy (principal); G92 Toxic encephalopathy; E11.10 Type 2 diabetes mellitus with ketoacidosis without coma; N17.9 Acute kidney failure, unspecified; R65.10 Systemic inflammatory response syndrome (SIRS) of non-infectious origin without acute organ dysfunction; E87.1 Hypo-osmolality and hyponatremia; E86.0 Dehydration; K20.9 Esophagitis, unspecified; D72.829 Elevated white blood cell count, unspecified; E87.6 Hypokalemia; Z53.21 Procedure and treatment not carried out due to patient leaving prior to being seen by health care provider; Z79.4 Long term (current) use of insulin; Z91.14 Patient's other noncompliance with medication regimen
CPT/HCPCS: 36415; 36600; 70450; 71045; 80048; 80053; 80202; 80305; 81003; 81025; 82010; 82375; 82550; 82553; 82805; 82962; 83036; 83605; 83690; 83735; 83880; 83935; 83937; 84100; 84484; 84703; 85007; 85025; 85027; 85610; 85730; 86850; 86900; 87040; 87086; 93005; 93970; 96365; 96367; 96375; 96376; 99291; C9113; G0482; J0696; J1650; J1815; J1885; J2060; J2270; J2405; J2543; J3370; J3480; J3490; J7030; J7042; J7050; J7060; J7620

== ENCOUNTER 2017-08-04 14:27 | Inpatient (IN) | payer MEDICAID ==
[2017-08-04] VITALS (9 sets, daily range): BP systolic 132–158; BP diastolic 85–108
[~2017-08-04] VITALS: Ht 165.1 cm; Wt 55.8 kg
[2017-08-04] MEDS ORDERED: SODIUM CHLORIDE 0.9% 1,000 ML IV ONE ×3 (14:37→15:15)
[2017-08-04 14:59] LABS: HEMATOCRIT. 44.7 % (36.0-48.0); HEMOGLOBIN. 13.3 g/dL (12.0-16.0); MEAN CORPUSCULAR HEMOGLOBIN 28.4 pg (28.0-32.0); MEAN CORPUSCULAR VOLUME 95.6 fL (81.0-99.0); PLATELET 475 x1000/uL (130-400); RED BLOOD CELL COUNT 4.68 mill/uL (4.2-5.4)
[2017-08-04 15:04] LABS: CHLORIDE 93 mEq/L (98-107)
[2017-08-04 15:05] LABS: INR 1.1
[2017-08-04 15:09] LABS: BG BASE EXCESS -31.8 mmol/L (-2.0-2.0); BG CARBOXYHEMOGLOBIN 0.4 % (0.5-1.5); BG DEOXYHEMOGLOBIN 1.4 % (0.0-5.0); BG FRACTION INSPIRED OXYGEN 21; BG HCO3 ACT 1.4 mmol/L (22.0-26.0); BG METHEMOGLOBIN 0.4 % (0.0-1.5); BG OXYGEN SATURATION 98.6 % (92.0-98.5); BG OXYHEMOGLOBIN 97.8 % (94.0-97.0); BG PCO2 8.9 mmHg (35.0-45.0); BG PH 6.816 (7.350-7.450); BG SAMPLE SITE RIGHT RADIAL; BG TOTAL HEMOGLOBIN 13.8 g/dL (12.0-18.0); BG VENT MODE ROOM AIR
[2017-08-04] MEDS ORDERED: INSULIN REGULAR (DRIP) 100 UNITS in SODIUM CHLORIDE 0.9% 100 ML IV ONE (15:15)
[2017-08-04] MEDS ORDERED: INSULIN REGULAR (DRIP) 100 UNITS in SODIUM CHLORIDE 0.9% 99 ML IV ONE (15:30)
[2017-08-04 15:44] LABS: PLATELET ESTIMATE DECREASED
[2017-08-04] MEDS ORDERED: IPRATROPIUM/ALBUTEROL 0.5-3(2.5)MG/3ML NEB HHN PRN (16:30)
[2017-08-04] MEDS ORDERED: SODIUM BICARBONATE 8.4% 1 MEQ/ML 50ML SYR IV NR (17:00)
[2017-08-04 17:09] LABS: CLARITY URINE CLOUDY (CLEAR); COLOR URINE YELLOW (YELLOW); KETONES URINE 4+ (NEGATIVE); LEUKOCYTE ESTERASE URINE NEGATIVE (NEGATIVE); NITRITE URINE NEGATIVE (NEGATIVE); OCCULT BLOOD URINE TRACE (NEGATIVE); PROTEIN URINE 1+ (NEGATIVE); UROBILINOGEN URINE 0.2 E.U./dL (0.2-1.0)
[2017-08-04] MEDS ORDERED: INSULIN REGULAR (DRIP) 100 UNITS in SODIUM CHLORIDE 0.9% 100 ML IV SCH (17:14)
[2017-08-04] MEDS ORDERED: CLONIDINE 0.1MG TABLET PO PRN (17:15)
[2017-08-04] MEDS ORDERED: ENOXAPARIN 40MG/0.4ML SYR SUBCUT SCH (17:15)
[2017-08-04] MEDS ORDERED: ONDANSETRON HCL 4MG/2ML VIAL IV PRN (17:15)
[2017-08-04] MEDS ORDERED: IPRATROPIUM/ALBUTEROL 0.5-3(2.5)MG/3ML NEB INH PRN (17:15)
[2017-08-04] MEDS ORDERED: GUAIFENESIN 200MG/10ML SUGAR FREE UDC PO PRN (17:15)
[2017-08-04] MEDS ORDERED: DEXTROSE 50% WATER 50ML SYRINGE IV PRN ×2 (17:15)
[2017-08-04 17:33] LABS: *AMPHETAMINES SCREEN URINE NEGATIVE (NEGATIVE); *BARBITURATES SCREEN URINE NEGATIVE (NEGATIVE); *BENZODIAZEPINES SCREEN URINE NEGATIVE (NEGATIVE); *COCAINE SCREEN URINE NEGATIVE (NEGATIVE); METHADONE URINE SCREEN NEGATIVE (NEGATIVE); OPIATES URINE SCREEN NEGATIVE (NEGATIVE)
[2017-08-04 17:34] LABS: CANNABINOID URINE SCREEN NEGATIVE (NEGATIVE); PHENCYCLIDINE URINE SCREEN NEGATIVE (NEGATIVE)
[2017-08-04] MEDS ORDERED: SODIUM CHLORIDE 0.9% 1,000 ML IV SCH (18:30)
[2017-08-04] MEDS: BLOOD SUGAR DIAGNOSTIC STRIP TEST SCH ×3 (21:13→23:58)
[2017-08-04 22:07] LABS: CHLORIDE 110 mEq/L (98-107)
[2017-08-04 22:16] LABS: CREATINE KINASE 140 IU/L (26-192)
[2017-08-04 22:17] LABS: CREATINE KINASE MB FRACTION 1.7 ng/mL (0.5-3.6)
[2017-08-04] MEDS: METOCLOPRAMIDE HCL 10MG/2ML VIAL IV SCH (23:30)
[2017-08-04] MEDS: PANTOPRAZOLE SODIUM 40 MG/VIAL IV SCH (23:34)
[2017-08-05] VITALS (40 sets, daily range): BP systolic 112–150; BP diastolic 64–98
[2017-08-05 01:13] LABS: CHLORIDE 113 mEq/L (98-107)
[2017-08-05 01:19] LABS: BETA HYDROXYBUTYRATE 4.9 mMol/L (0.0-0.3)
[2017-08-05] MEDS: DEXT 5%/0.9% NACL 1,000 ML IV SCH ×2 (02:00→08:45)
[2017-08-05 05:43] LABS: CHLORIDE 115 mEq/L (98-107)
[2017-08-05 05:56] LABS: BETA HYDROXYBUTYRATE 2.8 mMol/L (0.0-0.3); CREATINE KINASE 82 IU/L (26-192); LDL CHOLESTEROL 65 mg/dL (5-100)
[2017-08-05 05:58] LABS: HDL CHOLESTEROL 76 mg/dL (40-59)
[2017-08-05 05:59] LABS: CREATINE KINASE MB FRACTION 1.4 ng/mL (0.5-3.6)
[2017-08-05 07:18] LABS: BG BASE EXCESS -11.4 mmol/L (-2.0-2.0); BG CARBOXYHEMOGLOBIN 0.7 % (0.5-1.5); BG HCO3 ACT 12.1 mmol/L (22.0-26.0); BG METHEMOGLOBIN 0.3 % (0.0-1.5); BG PCO2 22.7 mmHg (35.0-45.0); BG PH 7.345 (7.350-7.450); BG PO2 104.6 mmHg (75.0-100.0); BG SAMPLE SITE RIGHT RADIAL; BG VENT MODE ROOM AIR
[2017-08-05] MEDS: METOCLOPRAMIDE HCL 10MG/2ML VIAL IV SCH ×2 (08:45→21:17)
[2017-08-05] MEDS: PANTOPRAZOLE SODIUM 40 MG/VIAL IV SCH (08:45)
[2017-08-05] MEDS ORDERED: INSULIN REGULAR (DRIP) 100 UNITS in SODIUM CHLORIDE 0.9% 100 ML IV SCH (09:04)
[2017-08-05] MEDS ORDERED: DEXTROSE 50% WATER 50ML SYRINGE IV PRN ×3 (09:15→11:00)
[2017-08-05 09:24] LABS: CHLORIDE 116 mEq/L (98-107)
[2017-08-05] MEDS ORDERED: BLOOD SUGAR DIAGNOSTIC STRIP TEST SCH (10:00)
[2017-08-05] MEDS ORDERED: HYDROCODONE/ACETAMINOPHEN 5/325MG TABLET PO PRN (11:00)
[2017-08-05] MEDS ORDERED: MORPHINE SULFATE 4 MG/ML CPJ (NOT FOR IM USE) IV PRN (11:00)
[2017-08-05] MEDS ORDERED: POTASSIUM CHLORIDE 20MEQ TABLET SR PO NR (11:00)
[2017-08-05] MEDS: BLOOD SUGAR DIAGNOSTIC STRIP TEST SCH ×3 (11:30→21:47)
[2017-08-05] MEDS: INSULIN LISPRO 100 UNITS/ML SUBCUT SCH ×3 (12:00→21:47)
[2017-08-05 12:28] LABS: CHLORIDE 113 mEq/L (98-107)
[2017-08-05 12:29] LABS: BASOPHILS % 0.6 % (0.0-2.0); HEMOGLOBIN. 11.5 g/dL (12.0-16.0); LYMPHOCYTES % 9.3 % (20.0-50.0); MEAN CORPUSCULAR HEMOGLOBIN 28.4 pg (28.0-32.0); MEAN CORPUSCULAR VOLUME 86.6 fL (81.0-99.0); MONOCYTES % 14.4 % (2.0-8.0); NEUTROPHILS % 75.7 % (40.0-76.0); PLATELET 307 x1000/uL (130-400); RED BLOOD CELL COUNT 4.05 mill/uL (4.2-5.4); RED CELL DISTRIBUTION WIDTH 15.6 % (11.6-14.6)
[2017-08-05] MEDS ORDERED: LIDOCAINE HCL/PF 1% 2ML VIAL ONE ×2 (14:52→15:34)
[2017-08-05 20:53] LABS: BG BASE EXCESS -11.3 mmol/L (-2.0-2.0); BG CARBOXYHEMOGLOBIN 0.3 % (0.5-1.5); BG DEOXYHEMOGLOBIN 2.2 % (0.0-5.0); BG FRACTION INSPIRED OXYGEN 21; BG HCO3 ACT 12.5 mmol/L (22.0-26.0); BG METHEMOGLOBIN 0.3 % (0.0-1.5); BG OXYGEN SATURATION 97.8 % (92.0-98.5); BG OXYHEMOGLOBIN 97.2 % (94.0-97.0); BG PH 7.353 (7.350-7.450); BG SAMPLE SITE LEFT RADIAL; BG VENT MODE ROOM AIR
[2017-08-05] MEDS ORDERED: OXYC-105 PO (21:27)
[2017-08-05] MEDS ORDERED: QUET50TA PO (22:51)
[2017-08-05] MEDS ORDERED: LORAZEPAM 1MG TABLET PO PRN (23:00)
[2017-08-05] MEDS: QUETIAPINE FUMARATE 50MG TABLET PO SCH (23:29)
[2017-08-05] MEDS: OXYCODONE HCL/ACETAMINOPHEN 5/325MG TABLET PO PRN (23:31)
[2017-08-06] VITALS (7 sets, daily range): BP systolic 93–126; BP diastolic 52–80
[2017-08-06] MEDS: CLINDAMYCIN 600MG PREMIX 50 ML IV SCH ×2 (01:16→08:56)
[2017-08-06] MEDS: AMPICILLIN SOD/SULBACTAM NA 3 G in SODIUM CHLORIDE 0.9% 100 ML IV SCH ×3 (01:16→14:10)
[2017-08-06] MEDS: OXYCODONE HCL/ACETAMINOPHEN 5/325MG TABLET PO PRN ×2 (05:53→14:04)
[2017-08-06] MEDS: BLOOD SUGAR DIAGNOSTIC STRIP TEST SCH ×3 (06:39→18:20)
[2017-08-06] MEDS: INSULIN LISPRO 100 UNITS/ML SUBCUT SCH ×3 (06:56→18:29)
[2017-08-06] MEDS: QUETIAPINE FUMARATE 50MG TABLET PO SCH (08:56)
[2017-08-06] MEDS: PANTOPRAZOLE SODIUM 40 MG/VIAL IV SCH (08:56)
[2017-08-06] MEDS: METOCLOPRAMIDE HCL 10MG/2ML VIAL IV SCH (08:56)
[2017-08-06] MEDS ORDERED: INSULIN GLARGINE UD 100 UNITS/ML SYR SUBCUT SCH (22:00)
== END 2017-08-06 20:50 | disposition home or self-care (01) | DRG 720 ==
LOC: EDBEDREQSVC 15:23 → EDBEDREQ 15:23 → EDBEDREQTM 15:23 → ER 15:37 → MICUSO 16:23 → ENRESERV 19:21 → MICUNO 08-05 11:07 → 7WST 08-05 19:49
PROVIDERS: ADMIT Internal Medicine; ATTEND Internal Medicine
DX: A41.9 Sepsis, unspecified organism (principal); J96.00 Acute respiratory failure, unspecified whether with hypoxia or hypercapnia; G93.41 Metabolic encephalopathy; E10.10 Type 1 diabetes mellitus with ketoacidosis without coma; K31.84 Gastroparesis; E10.43 Type 1 diabetes mellitus with diabetic autonomic (poly)neuropathy; E44.1 Mild protein-calorie malnutrition; E87.1 Hypo-osmolality and hyponatremia; E87.8 Other disorders of electrolyte and fluid balance, not elsewhere classified; K04.7 Periapical abscess without sinus; Z91.14 Patient's other noncompliance with medication regimen; Z68.20 Body mass index [BMI] 20.0-20.9, adult
CPT/HCPCS: 36415; 36600; 71045; 80048; 80053; 80061; 80305; 81003; 82010; 82375; 82550; 82553; 82805; 82962; 83036; 84145; 84484; 85025; 85610; 87040; 93005; 96361; 96365; 96375; 97116; 97162; 99291; C9113; J0295; J1650; J1815; J2270; J2405; J2765; J3490; J7030; J7042; J7050

== ENCOUNTER 2018-02-15 12:24 | Inpatient (IN) | payer MEDICAID ==
[~2018-02-15] VITALS: Ht 154.9 cm; Wt 59.9 kg
[2018-02-15] VITALS (26 sets, daily range): BP systolic 131–156; BP diastolic 63–107
[~2018-02-15 12:24] MED LIST changes: +OXYC-105 PO; +QUET50TA PO
[2018-02-15] MEDS ORDERED: SODIUM CHLORIDE 0.9% 1,000 ML IV ONE ×2 (12:34→15:24)
[2018-02-15] MEDS ORDERED: ETOMIDATE 2MG/ML 10ML VIAL IV ONE ×2 (12:45)
[2018-02-15] MEDS ORDERED: INSULIN REGULAR (DRIP) 100 UNITS in SODIUM CHLORIDE 0.9% 100 ML IV ONE (12:45)
[2018-02-15] MEDS ORDERED: SODIUM CHLORIDE 0.9% 1000ML BAG (SEPSIS BOLUS) IV ONE (12:45)
[2018-02-15] MEDS ORDERED: MIDAZOLAM HCL 50 MG in DEXTROSE 5% WATER 40 ML IV ONE (12:45)
[2018-02-15] MEDS ORDERED: SUCCINYLCHOLINE CHLORIDE 200MG/10ML IV ONE ×2 (12:45)
[2018-02-15] MEDS ORDERED: INSULIN REGULAR (DRIP) 100 UNITS in SODIUM CHLORIDE 0.9% 99 ML IV ONE (13:04)
[2018-02-15 13:10] LABS: HEMATOCRIT. 50.1 % (36.0-48.0); HEMOGLOBIN. 13.2 g/dL (12.0-16.0); MEAN CORPUSCULAR HEMOGLOBIN 27.4 pg (28.0-32.0); MEAN CORPUSCULAR VOLUME 103.4 fL (81.0-99.0); PLATELET 496 x1000/uL (130-400); RED BLOOD CELL COUNT 4.84 mill/uL (4.2-5.4); RED CELL DISTRIBUTION WIDTH 19.1 % (11.6-14.6)
[2018-02-15] MEDS ORDERED: MIDAZOLAM HCL 2 MG/2 ML VIAL IV ONE (13:15)
[2018-02-15 13:21] LABS: PARTIAL THROMBOPLASTIN TIME 35.5 sec (23.4-31.0); PROTHROMBIN TIME 9.6 sec (9.1-11.1)
[2018-02-15 13:27] LABS: BG BASE EXCESS -32.2 mmol/L (-2.0-2.0); BG CARBOXYHEMOGLOBIN 0.3 % (0.5-1.5); BG DEOXYHEMOGLOBIN 0.3 % (0.0-5.0); BG FRACTION INSPIRED OXYGEN 100; BG HCO3 ACT 1.7 mmol/L (22.0-26.0); BG METHEMOGLOBIN 0.5 % (0.0-1.5); BG OXYGEN SATURATION 99.7 % (92.0-98.5); BG OXYHEMOGLOBIN 98.9 % (94.0-97.0); BG PCO2 12.1 mmHg (35.0-45.0); BG SAMPLE SITE RIGHT RADIAL; BG TIDAL VOLUME(mL) 400 mL; BG TOTAL HEMOGLOBIN 11.7 g/dL (12.0-18.0); BG VENT MODE VENT - A/C; BG VENT RATE 20 set
[2018-02-15 13:33] LABS: CLARITY URINE CLOUDY (CLEAR); COLOR URINE YELLOW (YELLOW); KETONES URINE 4+ (NEGATIVE); LEUKOCYTE ESTERASE URINE NEGATIVE (NEGATIVE); NITRITE URINE NEGATIVE (NEGATIVE); OCCULT BLOOD URINE NEGATIVE (NEGATIVE); PROTEIN URINE 1+ (NEGATIVE); SPECIFIC GRAVITY URINE 1.029 (1.005-1.030); UROBILINOGEN URINE 0.2 E.U./dL (0.2-1.0)
[2018-02-15 13:33] LABS: HCG SCREEN NEGATIVE
[2018-02-15 13:37] LABS: PLATELET ESTIMATE INCREASED
[2018-02-15] MEDS ORDERED: SODIUM BICARBONATE 8.4% 1 MEQ/ML 50ML SYR IV ONE ×3 (13:45→17:15)
[2018-02-15] MEDS: SODIUM CHLORIDE 0.45% 1,000 ML IV SCH ×2 (13:45→17:00)
[2018-02-15] MEDS ORDERED: IPRATROPIUM/ALBUTEROL 0.5-3(2.5)MG/3ML NEB HHN PRN (13:45)
[2018-02-15] MEDS ORDERED: ONDANSETRON HCL 4MG/2ML INJ IV PRN (13:45)
[2018-02-15] MEDS ORDERED: ACETAMINOPHEN 325MG TABLET PO PRN (13:45)
[2018-02-15 14:20] LABS: CHLORIDE 95 mEq/L (98-107)
[2018-02-15 14:20] LABS: *AMPHETAMINES SCREEN URINE NEGATIVE (NEGATIVE); *BARBITURATES SCREEN URINE NEGATIVE (NEGATIVE); *BENZODIAZEPINES SCREEN URINE NEGATIVE (NEGATIVE); *COCAINE SCREEN URINE NEGATIVE (NEGATIVE); METHADONE URINE SCREEN NEGATIVE (NEGATIVE)
[2018-02-15 14:21] LABS: CANNABINOID URINE SCREEN NEGATIVE (NEGATIVE); OPIATES URINE SCREEN NEGATIVE (NEGATIVE); PHENCYCLIDINE URINE SCREEN NEGATIVE (NEGATIVE)
[2018-02-15 14:24] LABS: ETHANOL BLOOD < 10 mg/dL
[2018-02-15] MEDS ORDERED: PIPERACILLIN/TAZ 3.375G PREMIX 50 ML IV NR (15:00)
[2018-02-15 15:11] LABS: PHOSPHORUS 8.8 mg/dL (2.5-4.9)
[2018-02-15] MEDS ORDERED: VANCOMYCIN 1 G PREMIX 200 ML IV NR (15:30)
[2018-02-15 15:33] LABS: BETA HYDROXYBUTYRATE 14.1 mMol/L (0.0-0.3)
[2018-02-15] MEDS: PROPOFOL 10MG/ML 100ML 100 ML IV PRN ×3 (15:55→22:30)
[2018-02-15 15:57] LABS: BG BASE EXCESS -26.3 mmol/L (-2.0-2.0); BG CARBOXYHEMOGLOBIN 0.1 % (0.5-1.5); BG DEOXYHEMOGLOBIN 0.4 % (0.0-5.0); BG FRACTION INSPIRED OXYGEN 50; BG HCO3 ACT 3.2 mmol/L (22.0-26.0); BG METHEMOGLOBIN 0.3 % (0.0-1.5); BG OXYGEN SATURATION 99.6 % (92.0-98.5); BG OXYHEMOGLOBIN 99.2 % (94.0-97.0); BG PCO2 13.4 mmHg (35.0-45.0); BG PH 6.997 (7.350-7.450); BG PO2 325.2 mmHg (75.0-100.0); BG SAMPLE SITE RIGHT RADIAL; BG TIDAL VOLUME(mL) 400 mL; BG VENT MODE VENT - A/C; BG VENT RATE 24 set
[2018-02-15 17:12] LABS: CHLORIDE 109 mEq/L (98-107)
[2018-02-15] MEDS ORDERED: DEXTROSE 50% WATER 50ML SYRINGE IV PRN ×2 (18:00)
[2018-02-15] MEDS ORDERED: INSULIN REGULAR (DRIP) 100 UNITS in SODIUM CHLORIDE 0.9% 100 ML IV SCH ×4 (18:30)
[2018-02-15] MEDS ORDERED: BLOOD SUGAR DIAGNOSTIC STRIP TEST SCH (18:30)
[2018-02-15] MEDS: VANCOMYCIN 1 G PREMIX 200 ML IV SCH (18:30)
[2018-02-15] MEDS: ENOXAPARIN 40MG/0.4ML SYR SUBCUT SCH (18:35)
[2018-02-15] MEDS: FENTANYL CITRATE/PF 500 MCG in SODIUM CHLORIDE 0.9% 40 ML IV PRN ×2 (18:49→21:40)
[2018-02-15] MEDS ORDERED: HYDRALAZINE 20MG/ML VIAL IV PRN (19:00)
[2018-02-15] MEDS: BLOOD SUGAR DIAGNOSTIC STRIP TEST SCH ×6 (19:00→23:37)
[2018-02-15] MEDS: PIPERACILLIN/TAZ 3.375G PREMIX 50 ML IV SCH (20:12)
[2018-02-15] MEDS: PANTOPRAZOLE SODIUM 40 MG/VIAL IV SCH (20:12)
[2018-02-15] MEDS: IPRATROPIUM/ALBUTEROL 0.5-3(2.5)MG/3ML NEB HHN SCH (20:16)
[2018-02-15 21:02] LABS: CHLORIDE 115 mEq/L (98-107)
[2018-02-15 21:08] LABS: PHOSPHORUS 2.4 mg/dL (2.5-4.9)
[2018-02-15] MEDS: DEXT 5%/0.45% NACL KCL 20MEQ/L 1,000 ML IV SCH (21:40)
[2018-02-15 22:06] LABS: BG BASE EXCESS -8.1 mmol/L (-2.0-2.0); BG CARBOXYHEMOGLOBIN 0.5 % (0.5-1.5); BG DEOXYHEMOGLOBIN 0.8 % (0.0-5.0); BG FRACTION INSPIRED OXYGEN 40; BG METHEMOGLOBIN 0.3 % (0.0-1.5); BG OXYGEN SATURATION 99.2 % (92.0-98.5); BG OXYHEMOGLOBIN 98.4 % (94.0-97.0); BG PCO2 23.6 mmHg (35.0-45.0); BG PO2 213.8 mmHg (75.0-100.0); BG SAMPLE SITE RIGHT RADIAL; BG TIDAL VOLUME(mL) 400 mL; BG TOTAL HEMOGLOBIN 9.8 g/dL (12.0-18.0); BG VENT MODE VENT - A/C; BG VENT RATE 28 set
[2018-02-16] VITALS (71 sets, daily range): BP systolic 105–144; BP diastolic 57–90
[2018-02-16] MEDS: BLOOD SUGAR DIAGNOSTIC STRIP TEST SCH ×11 (00:06→21:22)
[2018-02-16 01:15] LABS: CHLORIDE 117 mEq/L (98-107)
[2018-02-16] MEDS: IPRATROPIUM/ALBUTEROL 0.5-3(2.5)MG/3ML NEB HHN SCH ×4 (01:56→20:18)
[2018-02-16] MEDS: VANCOMYCIN 1 G PREMIX 200 ML IV SCH ×3 (02:01→18:49)
[2018-02-16] MEDS: PIPERACILLIN/TAZ 3.375G PREMIX 50 ML IV SCH ×4 (02:01→22:35)
[2018-02-16] MEDS: DEXT 5%/0.45% NACL KCL 20MEQ/L 1,000 ML IV SCH (03:05)
[2018-02-16] MEDS: PROPOFOL 10MG/ML 100ML 100 ML IV PRN (03:06)
[2018-02-16] MEDS: FENTANYL CITRATE/PF 500 MCG in SODIUM CHLORIDE 0.9% 40 ML IV PRN (03:06)
[2018-02-16 05:38] LABS: CHLORIDE 115 mEq/L (98-107)
[2018-02-16 08:36] LABS: BG BASE EXCESS -7.4 mmol/L (-2.0-2.0); BG CARBOXYHEMOGLOBIN 0.3 % (0.5-1.5); BG FRACTION INSPIRED OXYGEN 40; BG HCO3 ACT 17.8 mmol/L (22.0-26.0); BG METHEMOGLOBIN 0.3 % (0.0-1.5); BG OXYHEMOGLOBIN 98.4 % (94.0-97.0); BG PCO2 34.8 mmHg (35.0-45.0); BG PH 7.327 (7.350-7.450); BG SAMPLE SITE RIGHT BRACHIAL; BG TIDAL VOLUME(mL) 400 mL; BG TOTAL HEMOGLOBIN 10.3 g/dL (12.0-18.0); BG VENT MODE VENT - A/C; BG VENT RATE 20 set
[2018-02-16] MEDS ORDERED: DEXTROSE 50% WATER 50ML SYRINGE IV PRN (08:45)
[2018-02-16] MEDS ORDERED: KCL 20MEQ/100ML PREMIX 100 ML IV SCH (09:00)
[2018-02-16 09:13] LABS: CHLORIDE 116 mEq/L (98-107)
[2018-02-16 09:15] LABS: BASOPHILS % 0.4 % (0.0-2.0); EOSINOPHILS % 0.5 % (0.0-5.0); HEMATOCRIT. 28.1 % (36.0-48.0); HEMOGLOBIN. 9.2 g/dL (12.0-16.0); LYMPHOCYTES % 18.4 % (20.0-50.0); MEAN CORPUSCULAR HEMOGLOBIN 27.6 pg (28.0-32.0); MEAN PLATELET VOLUME 7.2 fl (7.4-10.4); MONOCYTES % 11.1 % (2.0-8.0); NEUTROPHILS % 69.6 % (40.0-76.0); PLATELET 224 x1000/uL (130-400); RED BLOOD CELL COUNT 3.35 mill/uL (4.2-5.4); RED CELL DISTRIBUTION WIDTH 18.3 % (11.6-14.6)
[2018-02-16] MEDS: PANTOPRAZOLE SODIUM 40 MG/VIAL IV SCH (09:51)
[2018-02-16] MEDS ORDERED: POTASSIUM CHLORIDE INJ 40 MEQ in DEXT 5% WATER 250 ML IV SCH (10:30)
[2018-02-16 10:35] LABS: BG BASE EXCESS -4.4 mmol/L (-2.0-2.0); BG CARBOXYHEMOGLOBIN 0.3 % (0.5-1.5); BG FRACTION INSPIRED OXYGEN 40; BG HCO3 ACT 20.6 mmol/L (22.0-26.0); BG METHEMOGLOBIN 0.2 % (0.0-1.5); BG OXYHEMOGLOBIN 98.5 % (94.0-97.0); BG PCO2 37.8 mmHg (35.0-45.0); BG PH 7.355 (7.350-7.450); BG PO2 222.8 mmHg (75.0-100.0); BG PRESSURE SUPPORT 8; BG SAMPLE SITE LEFT RADIAL; BG VENT MODE VENT - CPAP
[2018-02-16] MEDS: INSULIN LISPRO 100 UNITS/ML SUBCUT SCH ×3 (11:39→21:00)
[2018-02-16] MEDS: INSULIN GLARGINE UD 100 UNITS/ML SYR SUBCUT SCH ×2 (11:55→22:36)
[2018-02-16] MEDS: TRAMADOL 50MG TABLET PO NR ×2 (15:15→15:28)
[2018-02-16] MEDS: DEXT 5%/0.45% NACL 1000ML 1,000 ML IV SCH (15:45)
[2018-02-16] MEDS: MORPHINE SULFATE 4 MG/ML CPJ (NOT FOR IM USE) IV PRN ×2 (15:46→19:45)
[2018-02-16] MEDS: ENOXAPARIN 40MG/0.4ML SYR SUBCUT SCH (18:50)
[2018-02-16 20:58] LABS: CHLORIDE 111 mEq/L (98-107)
[2018-02-16] MEDS: HYDROMORPHONE HCL/PF 2MG/ML CPJ IV PRN (22:34)
[2018-02-16] MEDS: KCL 10MEQ/50ML PREMIX 50 ML IV SCH (23:51)
[2018-02-17] VITALS: BP 119/71
[2018-02-17] MEDS: KCL 10MEQ/50ML PREMIX 50 ML IV SCH ×2 (00:30→01:30)
[2018-02-17 00:46] LABS: CHLORIDE 109 mEq/L (98-107)
[2018-02-17 01:12] LABS: BASOPHILS % 0.7 % (0.0-2.0); EOSINOPHILS % 0.4 % (0.0-5.0); HEMATOCRIT. 29.8 % (36.0-48.0); HEMOGLOBIN. 9.7 g/dL (12.0-16.0); LYMPHOCYTES % 20.3 % (20.0-50.0); MEAN CORPUSCULAR HEMOGLOBIN 27.4 pg (28.0-32.0); MEAN CORPUSCULAR VOLUME 84.1 fL (81.0-99.0); MEAN PLATELET VOLUME 6.8 fl (7.4-10.4); MONOCYTES % 9.7 % (2.0-8.0); NEUTROPHILS % 68.9 % (40.0-76.0); PLATELET 208 x1000/uL (130-400); RED BLOOD CELL COUNT 3.55 mill/uL (4.2-5.4); RED CELL DISTRIBUTION WIDTH 18.2 % (11.6-14.6)
[2018-02-17 01:15] LABS: CHLORIDE 109 mEq/L (98-107)
[2018-02-17 01:22] LABS: VANCOMYCIN TROUGH 12.7 ug/mL (5.0-10.0)
[2018-02-17] MEDS: VANCOMYCIN 1 G PREMIX 200 ML IV SCH (02:08)
[2018-02-17] MEDS: DEXT 5%/0.45% NACL 1000ML 1,000 ML IV SCH (02:09)
[2018-02-17] MEDS: HYDROMORPHONE HCL/PF 2MG/ML CPJ IV PRN ×3 (02:09→10:06)
[2018-02-17 04:00] VITALS: BP 122/79
[2018-02-17] MEDS: PIPERACILLIN/TAZ 3.375G PREMIX 50 ML IV SCH (04:31)
[2018-02-17] MEDS: IPRATROPIUM/ALBUTEROL 0.5-3(2.5)MG/3ML NEB HHN SCH ×4 (05:55→20:20)
[2018-02-17] MEDS: BLOOD SUGAR DIAGNOSTIC STRIP TEST SCH ×4 (06:17→21:05)
[2018-02-17] MEDS: INSULIN LISPRO 100 UNITS/ML SUBCUT SCH ×5 (07:50→21:05)
[2018-02-17] MEDS: PANTOPRAZOLE SODIUM 40 MG/VIAL IV SCH (08:54)
[2018-02-17 11:36] VITALS: BP 114/75
[2018-02-17] MEDS ORDERED: GUAIFENESIN 200MG/10ML SUGAR FREE UDC PO PRN (15:00)
[2018-02-17] MEDS ORDERED: THROAT LOZENGES-BENZOCAINE/MENTH/CETYLPYRD CL LOZENGES MM PRN (15:00)
[2018-02-17 15:28] VITALS: BP 140/98
[2018-02-17] MEDS: ENOXAPARIN 40MG/0.4ML SYR SUBCUT SCH (17:30)
[2018-02-17 20:00] VITALS: BP 112/73
[2018-02-17] MEDS: INSULIN GLARGINE UD 100 UNITS/ML SYR SUBCUT SCH (21:58)
[2018-02-17] MEDS: MORPHINE SULFATE 4 MG/ML CPJ (NOT FOR IM USE) IV PRN (21:59)
[2018-02-17] MEDS ORDERED: INSULIN GLARGINE UD 100 UNITS/ML SYR SUBCUT SCH (22:00)
[2018-02-17] MEDS ORDERED: PHENOL/SODIUM PHENOLATE 1.4% SRPAY 177ML MM PRN (22:30)
[2018-02-17 22:53] LABS: CHLORIDE 105 mEq/L (98-107)
[2018-02-17 23:00] LABS: BETA HYDROXYBUTYRATE 1.5 mMol/L (0.0-0.3)
[2018-02-17 23:01] LABS: T4 FREE 1.03 ng/dL (0.76-1.46)
[2018-02-18] VITALS: BP 115/81
[2018-02-18] MEDS: IPRATROPIUM/ALBUTEROL 0.5-3(2.5)MG/3ML NEB HHN SCH ×3 (01:06→14:25)
[2018-02-18] MEDS: POTASSIUM CHLORIDE 20MEQ TABLET SR PO SCH ×2 (02:33→06:18)
[2018-02-18] MEDS: MORPHINE SULFATE 4 MG/ML CPJ (NOT FOR IM USE) IV PRN (02:40)
[2018-02-18] MEDS ORDERED: POTASSIUM CHLORIDE 20MEQ TABLET SR PO SCH (06:15)
[2018-02-18] MEDS: BLOOD SUGAR DIAGNOSTIC STRIP TEST SCH ×2 (06:19→11:51)
[2018-02-18] MEDS: INSULIN LISPRO 100 UNITS/ML SUBCUT SCH ×3 (06:19→11:52)
[2018-02-18 08:00] VITALS: BP 129/93
[2018-02-18] MEDS: INSULIN GLARGINE UD 100 UNITS/ML SYR SUBCUT SCH (10:00)
[2018-02-18 12:00] VITALS: BP 118/85
[2018-02-18] MEDS ORDERED: INSULIN LISPRO 100 UNITS/ML SUBCUT SCH (12:20)
[2018-02-18] MEDS ORDERED: OMEPRAZOLE 20MG CAPSULE EXTENDED RELEASE PO SCH (13:00)
[2018-02-18 14:32] LABS: CHLORIDE 105 mEq/L (98-107)
[2018-02-18 14:34] VITALS: BP 130/93
[2018-02-18 16:00] VITALS: BP 120/87
[2018-02-18] MEDS ORDERED: SUCRALFATE 1 G/10 ML UDC PO SCH (17:20)
[2018-02-18 18:26] LABS: VITAMIN B12 SERUM 915 pg/mL (211-911)
[2018-02-20 08:17] LABS: ESTRADIOL < 6.0 pg/mL (.); LUTEINIZING HORMONE 0.4 mIU/mL (.)
== END 2018-02-18 16:32 | disposition home health service (06) | DRG 720 ==
LOC: ER 12:24 → MICUSO 13:39 → EDBEDREQ 13:43 → ENRESERV 14:13 → 6WST 02-16 18:03
PROVIDERS: ADMIT Internal Medicine; ATTEND Internal Medicine
PROC: 5A1935Z Respiratory Ventilation, Less than 24 Consecutive Hours (ICD-10-PCS; principal; 2018-02-15)
DX: A41.9 Sepsis, unspecified organism (principal); J96.01 Acute respiratory failure with hypoxia; G93.41 Metabolic encephalopathy; E10.10 Type 1 diabetes mellitus with ketoacidosis without coma; E87.4 Mixed disorder of acid-base balance; E86.0 Dehydration; E87.5 Hyperkalemia; Z79.4 Long term (current) use of insulin; E87.6 Hypokalemia; D75.89 Other specified diseases of blood and blood-forming organs; I10 Essential (primary) hypertension; Z91.19 Patient's noncompliance with other medical treatment and regimen; R74.0 Nonspecific elevation of levels of transaminase and lactic acid dehydrogenase [LDH]; E87.1 Hypo-osmolality and hyponatremia; E87.8 Other disorders of electrolyte and fluid balance, not elsewhere classified
CPT/HCPCS: 31500; 36415; 36600; 71045; 80048; 80202; 80305; 82010; 82375; 82533; 82607; 82670; 82805; 82962; 83002; 83605; 83735; 83880; 83930; 84100; 84145; 84439; 84443; 84478; 84481; 84484; 84703; 87070; 92610; 93005; 93306; 94002; 94003; 94640; 96365; 96375; 99291; C9113; G0482; J0330; J1170; J1650; J1815; J2250; J2270; J2543; J2704; J3010; J3370; J3480; J3490; J7030; J7050; J7060; J7620

== ENCOUNTER 2018-05-04 12:04 | Inpatient (IN) | payer MEDICAID ==
[~2018-05-04] VITALS: Ht 172.7 cm; Wt 65.8 kg
[2018-05-04] MEDS ORDERED: METOCLOPRAMIDE HCL 10MG/2ML VIAL IV ONE (12:45)
[2018-05-04] MEDS ORDERED: SODIUM CHLORIDE 0.9% 1,000 ML IV ONE ×3 (12:45)
[2018-05-04 13:25] LABS: BG BASE EXCESS -24.7 mmol/L (-2.0-2.0); BG CARBOXYHEMOGLOBIN 1.2 % (0.5-1.5); BG DEOXYHEMOGLOBIN 1.1 % (0.0-5.0); BG FRACTION INSPIRED OXYGEN 28; BG METHEMOGLOBIN 0.5 % (0.0-1.5); BG OXYGEN SATURATION 98.9 % (92.0-98.5); BG OXYHEMOGLOBIN 97.2 % (94.0-97.0); BG PCO2 10.3 mmHg (35.0-45.0); BG PH 7.075 (7.350-7.450); BG PO2 158.3 mmHg (75.0-100.0); BG SAMPLE SITE RIGHT BRACHIAL; BG TOTAL HEMOGLOBIN 15.1 g/dL (12.0-18.0); BG VENT MODE NASAL CANNULA
[2018-05-04] MEDS ORDERED: MORPHINE SULFATE 4 MG/ML CPJ (NOT FOR IM USE) IV ONE ×2 (13:30→15:00)
[2018-05-04 13:42] LABS: BASOPHILS % 0.9 % (0.0-2.0); EOSINOPHILS % 0.1 % (0.0-5.0); HEMATOCRIT. 50.4 % (36.0-48.0); HEMOGLOBIN. 15.1 g/dL (12.0-16.0); LYMPHOCYTES % 9.5 % (20.0-50.0); MEAN CORPUSCULAR HEMOGLOBIN 26.6 pg (28.0-32.0); MEAN CORPUSCULAR VOLUME 88.6 fL (81.0-99.0); MEAN PLATELET VOLUME 7.5 fl (7.4-10.4); MONOCYTES % 7.1 % (2.0-8.0); NEUTROPHILS % 82.4 % (40.0-76.0); PLATELET 494 x1000/uL (130-400); RED BLOOD CELL COUNT 5.69 mill/uL (4.2-5.4)
[2018-05-04 13:44] LABS: CHLORIDE 92 mEq/L (98-107)
[2018-05-04] MEDS ORDERED: SODIUM BICARBONATE 100 MEQ in SODIUM CHLORIDE 0.45% 1,000 ML IV SCH (13:45)
[2018-05-04] MEDS ORDERED: KCL 20MEQ/100ML PREMIX 100 ML IV ONE (14:15)
[2018-05-04] MEDS ORDERED: INSULIN REGULAR (DRIP) 100 UNITS in SODIUM CHLORIDE 0.9% 100 ML IV ONE ×2 (14:15→15:00)
[2018-05-04 14:49] LABS: PHOSPHORUS 6.9 mg/dL (2.5-4.9)
[2018-05-04] MEDS ORDERED: SODIUM CHLORIDE 0.9% 1,000 ML IV SCH (15:17)
[2018-05-04] MEDS ORDERED: PIPERACILLIN/TAZ 3.375G PREMIX 50 ML IV SCH (15:30)
[2018-05-04] MEDS ORDERED: ACETAMINOPHEN 650MG SUPP PR PRN (15:30)
[2018-05-04] MEDS ORDERED: INSULIN REGULAR (DRIP) 100 UNITS in SODIUM CHLORIDE 0.9% 100 ML IV SCH (15:30)
[2018-05-04] MEDS ORDERED: IPRATROPIUM/ALBUTEROL 0.5-3(2.5)MG/3ML NEB INH PRN (15:30)
[2018-05-04 15:56] LABS: BG BASE EXCESS -24.2 mmol/L (-2.0-2.0); BG CARBOXYHEMOGLOBIN 0.4 % (0.5-1.5); BG DEOXYHEMOGLOBIN 1.1 % (0.0-5.0); BG FRACTION INSPIRED OXYGEN 28; BG HCO3 ACT 3.4 mmol/L (22.0-26.0); BG METHEMOGLOBIN 0.2 % (0.0-1.5); BG OXYGEN SATURATION 98.9 % (92.0-98.5); BG OXYHEMOGLOBIN 98.3 % (94.0-97.0); BG PCO2 11.6 mmHg (35.0-45.0); BG PH 7.086 (7.350-7.450); BG PO2 163.8 mmHg (75.0-100.0); BG SAMPLE SITE RIGHT BRACHIAL; BG TOTAL HEMOGLOBIN 13.1 g/dL (12.0-18.0); BG VENT MODE NASAL CANNULA
[2018-05-04] MEDS: ONDANSETRON HCL 4MG/2ML INJ IV PRN (16:35)
[2018-05-04 16:51] LABS: CHLORIDE 107 mEq/L (98-107)
[2018-05-04] MEDS ORDERED: PIPERACILLIN/TAZ 3.375G PREMIX 50 ML IV NR (17:00)
[2018-05-04 17:31] LABS: CLARITY URINE CLEAR (CLEAR); COLOR URINE YELLOW (YELLOW); KETONES URINE 4+ (NEGATIVE); LEUKOCYTE ESTERASE URINE NEGATIVE (NEGATIVE); NITRITE URINE NEGATIVE (NEGATIVE); OCCULT BLOOD URINE 1+ (NEGATIVE); PROTEIN URINE 1+ (NEGATIVE); SPECIFIC GRAVITY URINE 1.022 (1.005-1.030); UROBILINOGEN URINE 0.2 E.U./dL (0.2-1.0)
[2018-05-04 21:45] VITALS: BP 136/89
[2018-05-04 22:00] VITALS: BP 138/94
[2018-05-04 22:30] VITALS: BP 144/91
[2018-05-04 23:00] VITALS: BP 149/91
[2018-05-04 23:11] LABS: CHLORIDE 107 mEq/L (98-107)
[2018-05-04 23:21] LABS: CREATINE KINASE 50 IU/L (26-192)
[2018-05-04 23:24] LABS: CREATINE KINASE MB FRACTION 1.2 ng/mL (0.5-3.6)
[2018-05-04 23:30] VITALS: BP 139/88
[2018-05-05] VITALS (78 sets, daily range): BP systolic 102–150; BP diastolic 62–110
[2018-05-05] MEDS ORDERED: INSULIN REGULAR (DRIP) 100 UNITS in SODIUM CHLORIDE 0.9% 100 ML IV SCH ×2 (00:23→00:26)
[2018-05-05] MEDS: BLOOD SUGAR DIAGNOSTIC STRIP TEST SCH ×24 (00:30→23:42)
[2018-05-05] MEDS ORDERED: DEXTROSE 50% WATER 50ML SYRINGE IV PRN ×4 (00:30)
[2018-05-05] MEDS ORDERED: BLOOD SUGAR DIAGNOSTIC STRIP TEST SCH (00:30)
[2018-05-05] MEDS: DEXT 5%/0.9% NACL KCL 20MEQ/L 1,000 ML IV PRN ×3 (00:52→16:26)
[2018-05-05] MEDS: PANTOPRAZOLE SODIUM 40 MG/VIAL IV SCH ×2 (00:52→09:49)
[2018-05-05] MEDS: PIPERACILLIN/TAZ 3.375G PREMIX 50 ML IV SCH ×3 (02:56→18:40)
[2018-05-05 04:06] LABS: UCG SCREEN NEGATIVE
[2018-05-05 04:21] LABS: *AMPHETAMINES SCREEN URINE NEGATIVE (NEGATIVE); METHADONE URINE SCREEN NEGATIVE (NEGATIVE)
[2018-05-05 04:23] LABS: *BARBITURATES SCREEN URINE NEGATIVE (NEGATIVE); *BENZODIAZEPINES SCREEN URINE NEGATIVE (NEGATIVE); *COCAINE SCREEN URINE NEGATIVE (NEGATIVE); PHENCYCLIDINE URINE SCREEN NEGATIVE (NEGATIVE)
[2018-05-05] MEDS ORDERED: SUCR1TAB30 PO (04:33)
[2018-05-05] MEDS ORDERED: METO5TAB86 PO (04:34)
[2018-05-05] MEDS ORDERED: LEVVL SQ (04:37)
[2018-05-05] MEDS ORDERED: INSLIS SUBCUT (04:37)
[2018-05-05 04:44] LABS: CANNABINOID URINE SCREEN PRESUMTIVE POSITIVE (NEGATIVE); OPIATES URINE SCREEN PRESUMTIVE POSITIVE (NEGATIVE)
[2018-05-05] MEDS ORDERED: MORPHINE SULFATE 4 MG/ML CPJ (NOT FOR IM USE) IV PRN (05:15)
[2018-05-05 06:22] LABS: HEMATOCRIT. 38.7 % (36.0-48.0); MEAN CORPUSCULAR HEMOGLOBIN 26.2 pg (28.0-32.0); MEAN CORPUSCULAR VOLUME 84.8 fL (81.0-99.0); MEAN PLATELET VOLUME 6.9 fl (7.4-10.4); PLATELET 269 x1000/uL (130-400); RED BLOOD CELL COUNT 4.56 mill/uL (4.2-5.4)
[2018-05-05 06:26] LABS: CHLORIDE 114 mEq/L (98-107)
[2018-05-05 06:46] LABS: LDL CHOLESTEROL 51 mg/dL (5-100)
[2018-05-05 06:47] LABS: CREATINE KINASE 46 IU/L (26-192)
[2018-05-05 06:48] LABS: HDL CHOLESTEROL 80 mg/dL (40-59)
[2018-05-05 06:50] LABS: CREATINE KINASE MB FRACTION 1.1 ng/mL (0.5-3.6)
[2018-05-05] MEDS: ENOXAPARIN 40MG/0.4ML SYR SUBCUT SCH (09:00)
[2018-05-05 12:46] LABS: CHLORIDE 114 mEq/L (98-107)
[2018-05-05] MEDS: SUCRALFATE 1 G/10 ML UDC PO SCH ×3 (12:46→23:06)
[2018-05-05] MEDS ORDERED: QUETIAPINE FUMARATE 50MG TABLET PO SCH (13:00)
[2018-05-05] MEDS: MORPHINE SULFATE 4 MG/ML CPJ (NOT FOR IM USE) IV PRN ×4 (14:08→20:48)
[2018-05-05 14:12] LABS: PLATELET ESTIMATE NORMAL
[2018-05-05 15:23] LABS: CHLORIDE 115 mEq/L (98-107)
[2018-05-05] MEDS: DEXT 5%/0.45% NACL 1000ML 1,000 ML IV SCH (18:39)
[2018-05-05] MEDS: QUETIAPINE FUMARATE 50MG TABLET PO SCH (23:07)
[2018-05-05] MEDS: VISCOUS LIDOCAINE 2% 15 ML UDC MM PRN (23:55)
[2018-05-05] MEDS: MAGNESIUM/ALUMINUM HYDROXIDE/SIMETHICONE 30ML UDC PO PRN (23:55)
[2018-05-05] MEDS: DICYCLOMINE 10 MG/5 ML ORAL SYR PO PRN (23:56)
[2018-05-06] VITALS (64 sets, daily range): BP systolic 110–150; BP diastolic 37–94
[2018-05-06] MEDS: BLOOD SUGAR DIAGNOSTIC STRIP TEST SCH ×18 (00:30→21:08)
[2018-05-06] MEDS: PIPERACILLIN/TAZ 3.375G PREMIX 50 ML IV SCH ×2 (02:01→10:55)
[2018-05-06] MEDS: SUCRALFATE 1 G/10 ML UDC PO SCH ×3 (05:50→18:08)
[2018-05-06 06:08] LABS: CHLORIDE 111 mEq/L (98-107)
[2018-05-06 06:16] LABS: BASOPHILS % 0.9 % (0.0-2.0); EOSINOPHILS % 2.7 % (0.0-5.0); HEMATOCRIT. 32.2 % (36.0-48.0); HEMOGLOBIN. 10.5 g/dL (12.0-16.0); LYMPHOCYTES % 31.2 % (20.0-50.0); MEAN CORPUSCULAR HEMOGLOBIN 26.7 pg (28.0-32.0); MEAN CORPUSCULAR VOLUME 82.2 fL (81.0-99.0); MEAN PLATELET VOLUME 6.8 fl (7.4-10.4); MONOCYTES % 13.3 % (2.0-8.0); NEUTROPHILS % 51.9 % (40.0-76.0); PLATELET 208 x1000/uL (130-400); RED BLOOD CELL COUNT 3.91 mill/uL (4.2-5.4); RED CELL DISTRIBUTION WIDTH 18.6 % (11.6-14.6)
[2018-05-06] MEDS: DEXT 5%/0.45% NACL 1000ML 1,000 ML IV SCH ×2 (06:56→20:25)
[2018-05-06] MEDS: MORPHINE SULFATE 4 MG/ML CPJ (NOT FOR IM USE) IV PRN ×3 (08:58→21:48)
[2018-05-06] MEDS: ENOXAPARIN 40MG/0.4ML SYR SUBCUT SCH (09:00)
[2018-05-06] MEDS: VISCOUS LIDOCAINE 2% 15 ML UDC MM PRN (10:04)
[2018-05-06] MEDS: DICYCLOMINE 10 MG/5 ML ORAL SYR PO PRN ×2 (10:09→21:47)
[2018-05-06] MEDS: MAGNESIUM/ALUMINUM HYDROXIDE/SIMETHICONE 30ML UDC PO PRN (10:09)
[2018-05-06] MEDS: QUETIAPINE FUMARATE 50MG TABLET PO SCH ×2 (10:10→18:08)
[2018-05-06] MEDS: PANTOPRAZOLE SODIUM 40 MG/VIAL IV SCH (10:10)
[2018-05-06] MEDS ORDERED: DEXTROSE 50% WATER 50ML SYRINGE IV PRN (13:15)
[2018-05-06] MEDS: INSULIN GLARGINE UD 100 UNITS/ML SYR SUBCUT SCH (14:53)
[2018-05-06] MEDS: INSULIN LISPRO 100 UNITS/ML SUBCUT SCH ×4 (14:54→21:00)
[2018-05-06] MEDS: FLUCONAZOLE 100MG TABLET PO SCH (18:07)
[2018-05-06] MEDS ORDERED: KCL 20MEQ/100ML PREMIX 100 ML IV ONE (23:00)
[2018-05-06] MEDS: KCL 20MEQ/100ML PREMIX 100 ML IV SCH (23:39)
[2018-05-07] VITALS (19 sets, daily range): BP systolic 104–127; BP diastolic 57–90
[2018-05-07] MEDS: SUCRALFATE 1 G/10 ML UDC PO SCH ×3 (00:57→12:23)
[2018-05-07] MEDS: KCL 20MEQ/100ML PREMIX 100 ML IV SCH (02:45)
[2018-05-07 05:18] LABS: BASOPHILS % 1.1 % (0.0-2.0); EOSINOPHILS % 3.4 % (0.0-5.0); HEMOGLOBIN. 10.2 g/dL (12.0-16.0); LYMPHOCYTES % 48.3 % (20.0-50.0); MEAN CORPUSCULAR HEMOGLOBIN 26.6 pg (28.0-32.0); MEAN PLATELET VOLUME 6.7 fl (7.4-10.4); MONOCYTES % 14.4 % (2.0-8.0); NEUTROPHILS % 32.8 % (40.0-76.0); PLATELET 201 x1000/uL (130-400); RED BLOOD CELL COUNT 3.83 mill/uL (4.2-5.4); RED CELL DISTRIBUTION WIDTH 18.4 % (11.6-14.6)
[2018-05-07 05:24] LABS: CHLORIDE 113 mEq/L (98-107)
[2018-05-07] MEDS: BLOOD SUGAR DIAGNOSTIC STRIP TEST SCH ×2 (07:50→13:23)
[2018-05-07] MEDS: INSULIN LISPRO 100 UNITS/ML SUBCUT SCH ×4 (07:50→13:25)
[2018-05-07] MEDS ORDERED: POTASSIUM CHLORIDE 20MEQ TABLET SR PO SCH (08:45)
[2018-05-07] MEDS: ENOXAPARIN 40MG/0.4ML SYR SUBCUT SCH (09:00)
[2018-05-07] MEDS: QUETIAPINE FUMARATE 50MG TABLET PO SCH ×2 (09:16→17:34)
[2018-05-07] MEDS: PANTOPRAZOLE SODIUM 40 MG/VIAL IV SCH (09:18)
[2018-05-07] MEDS: MORPHINE SULFATE 4 MG/ML CPJ (NOT FOR IM USE) IV PRN ×2 (09:19→15:04)
[2018-05-07] MEDS: VISCOUS LIDOCAINE 2% 15 ML UDC MM PRN (09:20)
[2018-05-07] MEDS: ONDANSETRON HCL 4MG/2ML INJ IV PRN (09:21)
[2018-05-07] MEDS ORDERED: KCL 20MEQ/100ML PREMIX 100 ML IV SCH (10:00)
[2018-05-07] MEDS ORDERED: INSULIN GLARGINE UD 100 UNITS/ML SYR SUBCUT SCH (10:00)
[2018-05-07] MEDS: INSULIN GLARGINE UD 100 UNITS/ML SYR SUBCUT SCH (10:39)
[2018-05-07] MEDS: FLUCONAZOLE 100MG TABLET PO SCH (17:33)
== END 2018-05-07 19:47 | disposition left against medical advice (07) | DRG 52 ==
LOC: ER 12:44 → EDBEDREQ 13:40 → CVICU 14:55 → ENRESERV 18:50 → EDBEDREQTM 20:41 → EDBEDREQ 20:41 → 6WST 05-07 18:24
PROVIDERS: ADMIT Internal Medicine; ATTEND Internal Medicine
DX: G93.41 Metabolic encephalopathy (principal); E10.10 Type 1 diabetes mellitus with ketoacidosis without coma; E87.1 Hypo-osmolality and hyponatremia; K20.9 Esophagitis, unspecified; E87.6 Hypokalemia; K29.80 Duodenitis without bleeding; Z53.21 Procedure and treatment not carried out due to patient leaving prior to being seen by health care provider; D72.829 Elevated white blood cell count, unspecified; Z91.19 Patient's noncompliance with other medical treatment and regimen; Z79.899 Other long term (current) drug therapy
CPT/HCPCS: 36415; 36600; 80048; 80061; 80305; 81025; 82375; 82550; 82553; 82805; 82962; 83036; 83605; 83735; 84100; 84132; 84443; 84484; 87106; 93005; 93970; 96374; 96375; 99285; C9113; J1650; J1815; J2270; J2405; J2543; J2765; J3480; J3490; J7030; J7042; J7050; J7620

== ENCOUNTER 2019-04-13 14:22 | Inpatient (IN) | payer MEDICAID, OTHER ==
[~2019-04-13] VITALS: Ht 167.6 cm; Wt 56.0 kg
[~2019-04-13 14:22] MED LIST changes: +INSLIS SUBCUT; +LEVVL SQ; +METO5TAB86 PO; +SUCR1TAB30 PO
[2019-04-13] MEDS ORDERED: PANTOPRAZOLE SODIUM 40 MG/VIAL IV STA (14:57)
[2019-04-13] MEDS ORDERED: MAGNESIUM/ALUMINUM HYDROXIDE/SIMETHICONE 30ML UDC PO STA (14:57)
[2019-04-13] MEDS ORDERED: ONDANSETRON HCL 4MG/2ML INJ IV STA (14:57)
[2019-04-13] MEDS ORDERED: MORPHINE SULFATE 4 MG/ML CPJ (NOT FOR IM USE) IV STA (14:57)
[2019-04-13] MEDS ORDERED: SODIUM CHLORIDE 0.9% 1,000 ML IV ONE ×3 (14:57→17:45)
[2019-04-13] MEDS ORDERED: PANTOPRAZOLE 80 MG in SODIUM CHLORIDE 0.9% 80 ML IV ONE (15:00)
[2019-04-13 15:38] LABS: CLARITY URINE CLEAR (CLEAR); COLOR URINE YELLOW (YELLOW); KETONES URINE 4+ (NEGATIVE); LEUKOCYTE ESTERASE URINE NEGATIVE (NEGATIVE); NITRITE URINE NEGATIVE (NEGATIVE); OCCULT BLOOD URINE NEGATIVE (NEGATIVE); PROTEIN URINE NEGATIVE (NEGATIVE); SPECIFIC GRAVITY URINE 1.033 (1.005-1.030); UROBILINOGEN URINE 0.2 E.U./dL (0.2-1.0)
[2019-04-13 15:47] LABS: HEMATOCRIT. 39.3 % (36.0-48.0); MEAN CORPUSCULAR HEMOGLOBIN 25.2 pg (28.0-32.0); MEAN CORPUSCULAR VOLUME 82.3 fL (81.0-99.0); MEAN PLATELET VOLUME 7.6 fl (7.4-10.4); PLATELET 376 x1000/uL (130-400); RED BLOOD CELL COUNT 4.77 mill/uL (4.2-5.4); RED CELL DISTRIBUTION WIDTH 18.4 % (11.6-14.6)
[2019-04-13 15:52] LABS: CHLORIDE 100 mEq/L (98-107)
[2019-04-13 15:56] LABS: ETHANOL BLOOD < 10 mg/dL
[2019-04-13 15:59] LABS: *AMPHETAMINES SCREEN URINE NEGATIVE (NEGATIVE); *BARBITURATES SCREEN URINE NEGATIVE (NEGATIVE); *BENZODIAZEPINES SCREEN URINE NEGATIVE (NEGATIVE); *COCAINE SCREEN URINE NEGATIVE (NEGATIVE); METHADONE URINE SCREEN NEGATIVE (NEGATIVE)
[2019-04-13 16:00] LABS: OPIATES URINE SCREEN NEGATIVE (NEGATIVE); PHENCYCLIDINE URINE SCREEN NEGATIVE (NEGATIVE)
[2019-04-13 16:05] LABS: CANNABINOID URINE SCREEN PRESUMTIVE POSITIVE (NEGATIVE)
[2019-04-13 16:06] LABS: PLATELET ESTIMATE NORMAL
[2019-04-13] MEDS ORDERED: INSULIN REGULAR (DRIP) 100 UNITS in SODIUM CHLORIDE 0.9% 99 ML IV SCH (16:30)
[2019-04-13 16:39] LABS: PROTHROMBIN TIME 10.3 sec (9.6-11.0)
[2019-04-13 16:55] LABS: PHOSPHORUS 5.9 mg/dL (2.5-4.9)
[2019-04-13] MEDS ORDERED: SODIUM CHLORIDE 0.9% 1,000 ML IV SCH (19:45)
[2019-04-13] MEDS ORDERED: DEXT 5%/0.45% NACL 1000ML 1,000 ML IV ONE (20:00)
[2019-04-13] MEDS: ONDANSETRON HCL 4MG/2ML INJ IV PRN (22:17)
[2019-04-13] MEDS: MORPHINE SULFATE 2 MG/ML CPJ (NOT FOR IM USE) IV PRN (22:17)
[2019-04-13 23:56] LABS: CHLORIDE 113 mEq/L (98-107)
[2019-04-14] VITALS (22 sets, daily range): BP systolic 115–160; BP diastolic 66–103
[2019-04-14] MEDS: DEXT 5%/0.9% NACL 1,000 ML IV SCH ×3 (00:52→08:09)
[2019-04-14] MEDS ORDERED: POTASSIUM CHLORIDE INJ 20 MEQ in SODIUM CHLORIDE 0.9% 1,000 ML IV SCH (01:00)
[2019-04-14] MEDS ORDERED: DEXT 5%/0.45% NACL 1000ML 1,000 ML IV SCH (02:30)
[2019-04-14 04:21] LABS: BASOPHILS % 0.2 % (0.0-2.0); EOSINOPHILS % 0.2 % (0.0-5.0); HEMATOCRIT. 31.3 % (36.0-48.0); HEMOGLOBIN. 9.8 g/dL (12.0-16.0); LYMPHOCYTES % 13.2 % (20.0-50.0); MEAN CORPUSCULAR HEMOGLOBIN 25.6 pg (28.0-32.0); MEAN PLATELET VOLUME 7.6 fl (7.4-10.4); MONOCYTES % 12.9 % (2.0-8.0); NEUTROPHILS % 73.5 % (40.0-76.0); PLATELET 285 x1000/uL (130-400); RED BLOOD CELL COUNT 3.82 mill/uL (4.2-5.4); RED CELL DISTRIBUTION WIDTH 17.7 % (11.6-14.6)
[2019-04-14] MEDS: ONDANSETRON HCL 4MG/2ML INJ IV PRN ×4 (04:24→22:35)
[2019-04-14] MEDS: MORPHINE SULFATE 2 MG/ML CPJ (NOT FOR IM USE) IV PRN (04:24)
[2019-04-14 04:27] LABS: CHLORIDE 112 mEq/L (98-107)
[2019-04-14] MEDS ORDERED: INSULIN REGULAR (DRIP) 100 UNITS in SODIUM CHLORIDE 0.9% 99 ML IV PRN (05:45)
[2019-04-14] MEDS ORDERED: DEXTROSE 50% WATER 50ML SYRINGE IV PRN ×3 (05:45→11:15)
[2019-04-14] MEDS ORDERED: INSULIN REGULAR (DRIP) 100 UNITS in SODIUM CHLORIDE 0.9% 100 ML IV SCH (06:00)
[2019-04-14] MEDS: BLOOD SUGAR DIAGNOSTIC STRIP TEST SCH ×10 (06:23→21:00)
[2019-04-14] MEDS: PANTOPRAZOLE SODIUM 40 MG/VIAL IV SCH (08:09)
[2019-04-14 09:05] LABS: BASOPHILS % 0.4 % (0.0-2.0); EOSINOPHILS % 0.1 % (0.0-5.0); HEMOGLOBIN. 9.8 g/dL (12.0-16.0); MEAN CORPUSCULAR HEMOGLOBIN 25.3 pg (28.0-32.0); MEAN CORPUSCULAR VOLUME 80.2 fL (81.0-99.0); MEAN PLATELET VOLUME 7.1 fl (7.4-10.4); NEUTROPHILS % 76.5 % (40.0-76.0); PLATELET 283 x1000/uL (130-400); RED BLOOD CELL COUNT 3.87 mill/uL (4.2-5.4); RED CELL DISTRIBUTION WIDTH 17.8 % (11.6-14.6)
[2019-04-14 09:30] LABS: CHLORIDE 114 mEq/L (98-107)
[2019-04-14] MEDS: SUCRALFATE 1 G/10 ML UDC PO SCH ×4 (10:30→22:23)
[2019-04-14] MEDS: HYDROMORPHONE HCL/PF 2MG/ML CPJ IV PRN ×3 (10:31→22:24)
[2019-04-14 11:19] LABS: PHOSPHORUS 1.5 mg/dL (2.5-4.9)
[2019-04-14] MEDS: METOCLOPRAMIDE HCL 10MG/2ML VIAL IV SCH ×3 (11:56→22:24)
[2019-04-14] MEDS: INSULIN LISPRO 100 UNITS/ML SUBCUT SCH ×3 (11:57→22:19)
[2019-04-14] MEDS: CEFTRIAXONE 1 G PREMIX 50 ML IV SCH (14:05)
[2019-04-14] MEDS ORDERED: INSULIN GLARGINE UD 100 UNITS/ML SYR SUBCUT SCH (15:00)
[2019-04-14] MEDS: INSULIN GLARGINE UD 100 UNITS/ML SYR SUBCUT SCH (22:20)
[2019-04-15] VITALS: BP 116/72
[2019-04-15 04:00] VITALS: BP 111/66
[2019-04-15] MEDS: METOCLOPRAMIDE HCL 10MG/2ML VIAL IV SCH ×3 (05:58→17:34)
[2019-04-15] MEDS: SUCRALFATE 1 G/10 ML UDC PO SCH ×3 (05:58→17:34)
[2019-04-15] MEDS: BLOOD SUGAR DIAGNOSTIC STRIP TEST SCH ×3 (07:47→17:57)
[2019-04-15] MEDS: INSULIN LISPRO 100 UNITS/ML SUBCUT SCH ×3 (07:50→17:50)
[2019-04-15 07:59] VITALS: BP 124/92
[2019-04-15] MEDS: PANTOPRAZOLE SODIUM 40 MG/VIAL IV SCH (08:32)
[2019-04-15] MEDS: ONDANSETRON HCL 4MG/2ML INJ IV PRN ×2 (08:32→14:39)
[2019-04-15] MEDS: HYDROMORPHONE HCL/PF 2MG/ML CPJ IV PRN ×2 (08:33→14:49)
[2019-04-15] MEDS: INSULIN GLARGINE UD 100 UNITS/ML SYR SUBCUT SCH (10:00)
[2019-04-15 10:11] LABS: BASOPHILS % 0.6 % (0.0-2.0); EOSINOPHILS % 1.3 % (0.0-5.0); HEMATOCRIT. 31.7 % (36.0-48.0); HEMOGLOBIN. 10.1 g/dL (12.0-16.0); LYMPHOCYTES % 22.8 % (20.0-50.0); MEAN CORPUSCULAR HEMOGLOBIN 25.3 pg (28.0-32.0); MEAN CORPUSCULAR VOLUME 79.4 fL (81.0-99.0); MEAN PLATELET VOLUME 6.6 fl (7.4-10.4); MONOCYTES % 10.9 % (2.0-8.0); NEUTROPHILS % 64.4 % (40.0-76.0); PLATELET 271 x1000/uL (130-400); RED BLOOD CELL COUNT 3.99 mill/uL (4.2-5.4); RED CELL DISTRIBUTION WIDTH 17.6 % (11.6-14.6)
[2019-04-15 10:20] LABS: CHLORIDE 104 mEq/L (98-107)
[2019-04-15 12:00] VITALS: BP 121/84
[2019-04-15] MEDS ORDERED: SUCR1TAB30 PO (12:15)
[2019-04-15] MEDS ORDERED: PROT40 MT (12:15)
[2019-04-15] MEDS ORDERED: METO5TAB86 PO (12:15)
[2019-04-15] MEDS: CEFTRIAXONE 1 G PREMIX 50 ML IV SCH (12:30)
[2019-04-15] MEDS ORDERED: OXYC-105 PO (14:15)
[2019-04-15 15:00] VITALS: BP 136/74
[2019-04-15 17:02] VITALS: BP 134/134
== END 2019-04-15 17:52 | disposition home or self-care (01) | DRG 420 ==
LOC: ER 14:22 → MICUSO 17:14 → EDBEDREQSVC 17:23 → EDBEDREQ 17:23 → ENRESERV 04-14 01:37 → 6WST 04-14 16:30
PROVIDERS: ADMIT Internal Medicine; ATTEND Internal Medicine
DX: E10.10 Type 1 diabetes mellitus with ketoacidosis without coma (principal); K31.84 Gastroparesis; E10.43 Type 1 diabetes mellitus with diabetic autonomic (poly)neuropathy; E87.1 Hypo-osmolality and hyponatremia; K29.70 Gastritis, unspecified, without bleeding; R04.2 Hemoptysis; K44.9 Diaphragmatic hernia without obstruction or gangrene; Z87.11 Personal history of peptic ulcer disease; Z87.19 Personal history of other diseases of the digestive system; Z79.899 Other long term (current) drug therapy; Z79.4 Long term (current) use of insulin
CPT/HCPCS: 36415; 71045; 74176; 80048; 80053; 80305; 80320; 81003; 82010; 82962; 83605; 83735; 84100; 84145; 85025; 86850; 86900; 87804; 93005; 96365; 99291; C9113; J0696; J1170; J1815; J2270; J2405; J2765; J3480; J7030; J7042; J7050; G0480

== ENCOUNTER 2019-06-19 15:50 | Inpatient (IN) | payer OTHER ==
[2019-06-19] VITALS (8 sets, daily range): BP systolic 130–162; BP diastolic 77–100
[~2019-06-19] VITALS: Ht 165.1 cm; Wt 61.7 kg
[~2019-06-19 15:50] MED LIST changes: -AMOX500T2 PO; -CLIN300C11 PO; +PROT40 MT
[2019-06-19] MEDS ORDERED: SODIUM CHLORIDE 0.9% 1000ML BAG (SEPSIS BOLUS) IV ONE (16:15)
[2019-06-19 16:29] LABS: BG BASE EXCESS -24.9 mmol/L (-2.0-2.0); BG CARBOXYHEMOGLOBIN 0.4 % (0.5-1.5); BG DEOXYHEMOGLOBIN 1.2 % (0.0-5.0); BG FRACTION INSPIRED OXYGEN 28; BG HCO3 ACT 2.7 mmol/L (22.0-26.0); BG METHEMOGLOBIN 0.4 % (0.0-1.5); BG OXYGEN SATURATION 98.8 % (92.0-98.5); BG PCO2 9.4 mmHg (35.0-45.0); BG PO2 156.5 mmHg (75.0-100.0); BG SAMPLE SITE RIGHT RADIAL; BG TOTAL HEMOGLOBIN 12.9 g/dL (12.0-18.0); BG VENT MODE NASAL CANNULA
[2019-06-19 16:43] LABS: HEMATOCRIT. 49.6 % (36.0-48.0); HEMOGLOBIN. 14.4 g/dL (12.0-16.0); MEAN CORPUSCULAR HEMOGLOBIN 25.2 pg (28.0-32.0); MEAN CORPUSCULAR VOLUME 86.6 fL (81.0-99.0); MEAN PLATELET VOLUME 8.6 fl (7.4-10.4); PLATELET 453 x1000/uL (130-400); RED BLOOD CELL COUNT 5.73 mill/uL (4.2-5.4); RED CELL DISTRIBUTION WIDTH 19.7 % (11.6-14.6)
[2019-06-19 16:47] LABS: CHLORIDE 95 mEq/L (98-107); INR 0.9; PROTHROMBIN TIME 10.1 sec (9.6-11.0)
[2019-06-19 16:54] LABS: ETHANOL BLOOD < 10 mg/dL
[2019-06-19 17:00] LABS: CREATINE KINASE 63 IU/L (26-192)
[2019-06-19] MEDS ORDERED: LORAZEPAM 2MG/ML CPJ IV ONE ×2 (17:00→20:00)
[2019-06-19 17:03] LABS: CREATINE KINASE MB FRACTION < 1.0 ng/mL (0.5-3.6)
[2019-06-19] MEDS ORDERED: SODIUM CHLORIDE 0.9% 1,000 ML IV STA (17:10)
[2019-06-19 17:24] LABS: HCG SCREEN NEGATIVE
[2019-06-19] MEDS ORDERED: INSULIN REGULAR (DRIP) 100 UNITS in SODIUM CHLORIDE 0.9% 100 ML IV NR (17:30)
[2019-06-19 17:37] LABS: BETA HYDROXYBUTYRATE 11.7 mMol/L (0.0-0.3)
[2019-06-19] MEDS ORDERED: ONDANSETRON HCL 4MG/2ML INJ IV ONE (18:00)
[2019-06-19] MEDS ORDERED: MORPHINE SULFATE 4 MG/ML CPJ (NOT FOR IM USE) IV ONE (18:00)
[2019-06-19 18:22] LABS: CLARITY URINE CLEAR (CLEAR); COLOR URINE YELLOW (YELLOW); KETONES URINE 4+ (NEGATIVE); LEUKOCYTE ESTERASE URINE NEGATIVE (NEGATIVE); NITRITE URINE NEGATIVE (NEGATIVE); OCCULT BLOOD URINE NEGATIVE (NEGATIVE); PH URINE 5.5 (4.5-8.0); PROTEIN URINE 2+ (NEGATIVE); SPECIFIC GRAVITY URINE 1.029 (1.005-1.030); UROBILINOGEN URINE 0.2 E.U./dL (0.2-1.0)
[2019-06-19 18:28] LABS: CHLORIDE 107 mEq/L (98-107)
[2019-06-19 18:44] LABS: *AMPHETAMINES SCREEN URINE NEGATIVE (NEGATIVE); *BARBITURATES SCREEN URINE NEGATIVE (NEGATIVE); *BENZODIAZEPINES SCREEN URINE NEGATIVE (NEGATIVE)
[2019-06-19 18:45] LABS: *COCAINE SCREEN URINE NEGATIVE (NEGATIVE); METHADONE URINE SCREEN NEGATIVE (NEGATIVE); OPIATES URINE SCREEN NEGATIVE (NEGATIVE); PHENCYCLIDINE URINE SCREEN NEGATIVE (NEGATIVE)
[2019-06-19 18:53] LABS: CANNABINOID URINE SCREEN PRESUMTIVE POSITIVE (NEGATIVE)
[2019-06-19] MEDS ORDERED: KETOROLAC 15MG/ML VIAL IV ONE (20:00)
[2019-06-19 20:14] LABS: PLATELET ESTIMATE NORMAL
[2019-06-19 20:40] LABS: CHLORIDE 114 mEq/L (98-107)
[2019-06-19] MEDS ORDERED: GUAIFENESIN 200MG/10ML SUGAR FREE UDC PO PRN (21:00)
[2019-06-19] MEDS ORDERED: ACETAMINOPHEN 325MG TABLET PO PRN (21:00)
[2019-06-19] MEDS ORDERED: ONDANSETRON HCL 4MG/2ML INJ IV PRN (21:00)
[2019-06-19] MEDS ORDERED: INSULIN REGULAR (DRIP) 100 UNITS in SODIUM CHLORIDE 0.9% 100 ML IV SCH ×2 (21:00→21:15)
[2019-06-19] MEDS ORDERED: IPRATROPIUM/ALBUTEROL 0.5-3(2.5)MG/3ML NEB HHN PRN (21:00)
[2019-06-19] MEDS ORDERED: SODIUM CHLORIDE 0.45% 1,000 ML IV SCH (21:00)
[2019-06-19] MEDS ORDERED: CLONIDINE 0.1MG TABLET PO PRN (21:00)
[2019-06-19] MEDS: BLOOD SUGAR DIAGNOSTIC STRIP TEST SCH ×3 (21:23→23:40)
[2019-06-19] MEDS ORDERED: DEXTROSE 50% WATER 50ML SYRINGE IV PRN ×2 (21:30)
[2019-06-19] MEDS: PANTOPRAZOLE 40MG DR TABLET PO SCH (21:40)
[2019-06-19] MEDS: INSULIN REGULAR (DRIP) 100 UNITS in SODIUM CHLORIDE 0.9% 100 ML IV SCH (21:40)
[2019-06-19] MEDS: DEXT 5%/0.9% NACL 1,000 ML IV SCH (22:12)
[2019-06-19] MEDS: MORPHINE SULFATE 2 MG/ML CPJ (NOT FOR IM USE) IV PRN (22:13)
[2019-06-19] MEDS ORDERED: ENOXAPARIN 40MG/0.4ML SYR SUBCUT SCH (22:30)
[2019-06-20] VITALS (37 sets, daily range): BP systolic 104–154; BP diastolic 69–101
[2019-06-20] MEDS: PIPERACILLIN/TAZOBACTAM 3.375 G in DEXT 5% WATER 100 ML IV SCH ×4 (00:01→17:18)
[2019-06-20] MEDS: METOCLOPRAMIDE HCL 10MG/2ML VIAL IV SCH ×4 (00:01→17:18)
[2019-06-20] MEDS: BLOOD SUGAR DIAGNOSTIC STRIP TEST SCH ×22 (00:13→23:51)
[2019-06-20 01:05] LABS: CHLORIDE 117 mEq/L (98-107)
[2019-06-20 01:12] LABS: PHOSPHORUS 2.3 mg/dL (2.5-4.9)
[2019-06-20] MEDS: DEXT 5%/0.9% NACL 1,000 ML IV SCH (03:40)
[2019-06-20 05:24] LABS: BASOPHILS % 0.3 % (0.0-2.0); HEMOGLOBIN. 11.4 g/dL (12.0-16.0); LYMPHOCYTES % 9.8 % (20.0-50.0); MEAN CORPUSCULAR HEMOGLOBIN 25.1 pg (28.0-32.0); MEAN CORPUSCULAR VOLUME 81.1 fL (81.0-99.0); MEAN PLATELET VOLUME 7.7 fl (7.4-10.4); MONOCYTES % 7.5 % (2.0-8.0); NEUTROPHILS % 82.4 % (40.0-76.0); PLATELET 349 x1000/uL (130-400); RED BLOOD CELL COUNT 4.57 mill/uL (4.2-5.4); RED CELL DISTRIBUTION WIDTH 18.7 % (11.6-14.6)
[2019-06-20 06:13] LABS: CHLORIDE 120 mEq/L (98-107)
[2019-06-20] MEDS: PANTOPRAZOLE 40MG DR TABLET PO SCH (08:34)
[2019-06-20] MEDS: MORPHINE SULFATE 2 MG/ML CPJ (NOT FOR IM USE) IV PRN ×4 (08:34→20:58)
[2019-06-20] MEDS: DEXT 5%/0.9% NACL KCL 20MEQ/L 1,000 ML IV SCH ×3 (08:34→17:18)
[2019-06-20] MEDS: ENOXAPARIN 40MG/0.4ML SYR SUBCUT SCH ×3 (08:35→21:00)
[2019-06-20 10:11] LABS: CHLORIDE 117 mEq/L (98-107)
[2019-06-20] MEDS ORDERED: SODIUM CHLORIDE 0.9% 100 ML IV ONE (11:15)
[2019-06-20] MEDS ORDERED: SUCRALFATE 1G TABLET PO SCH (12:50)
[2019-06-20] MEDS: INSULIN REGULAR (DRIP) 100 UNITS in SODIUM CHLORIDE 0.9% 100 ML IV SCH (15:10)
[2019-06-20 15:21] LABS: CHLORIDE 119 mEq/L (98-107)
[2019-06-20] MEDS: SUCRALFATE 1 G/10 ML UDC PO SCH ×2 (16:42→20:57)
[2019-06-20] MEDS: LORAZEPAM 0.5MG TABLET PO PRN (18:17)
[2019-06-20] MEDS ORDERED: POTASSIUM CHLORIDE 20MEQ TABLET SR PO NR (18:30)
[2019-06-20] MEDS ORDERED: HYDROCODONE/ACETAMINOPHEN 5/325MG TABLET PO PRN (18:30)
[2019-06-20] MEDS: HYDROCODONE/ACETAMINOPHEN 5/325MG TABLET PO PRN (18:41)
[2019-06-20 19:50] LABS: CHLORIDE 118 mEq/L (98-107)
[2019-06-20] MEDS: DEXT 5%/0.45% NACL KCL 20MEQ/L 1,000 ML IV SCH (20:51)
[2019-06-20] MEDS ORDERED: POTASSIUM CHLORIDE 20MEQ TABLET SR PO SCH (23:43)
[2019-06-21] VITALS (34 sets, daily range): BP systolic 100–138; BP diastolic 55–97
[2019-06-21] MEDS: METOCLOPRAMIDE HCL 10MG/2ML VIAL IV SCH ×4 (00:01→19:23)
[2019-06-21] MEDS: QUETIAPINE FUMARATE 50MG TABLET PO SCH ×2 (00:01→08:56)
[2019-06-21] MEDS: PIPERACILLIN/TAZOBACTAM 3.375 G in DEXT 5% WATER 100 ML IV SCH ×4 (00:01→18:37)
[2019-06-21] MEDS: BLOOD SUGAR DIAGNOSTIC STRIP TEST SCH ×20 (00:01→20:39)
[2019-06-21 00:45] LABS: CHLORIDE 119 mEq/L (98-107)
[2019-06-21] MEDS: DEXT 5%/0.45% NACL KCL 20MEQ/L 1,000 ML IV SCH ×5 (01:14→20:40)
[2019-06-21] MEDS: MORPHINE SULFATE 2 MG/ML CPJ (NOT FOR IM USE) IV PRN ×5 (01:24→20:44)
[2019-06-21 06:35] LABS: BASOPHILS % 0.5 % (0.0-2.0); EOSINOPHILS % 0.6 % (0.0-5.0); HEMATOCRIT. 27.7 % (36.0-48.0); HEMOGLOBIN. 8.8 g/dL (12.0-16.0); LYMPHOCYTES % 30.2 % (20.0-50.0); MEAN CORPUSCULAR VOLUME 78.5 fL (81.0-99.0); MEAN PLATELET VOLUME 7.2 fl (7.4-10.4); NEUTROPHILS % 59.7 % (40.0-76.0); PLATELET 176 x1000/uL (130-400); RED BLOOD CELL COUNT 3.53 mill/uL (4.2-5.4); RED CELL DISTRIBUTION WIDTH 18.9 % (11.6-14.6)
[2019-06-21 07:47] LABS: CHLORIDE 117 mEq/L (98-107)
[2019-06-21] MEDS: SUCRALFATE 1 G/10 ML UDC PO SCH ×4 (07:57→20:40)
[2019-06-21] MEDS: PANTOPRAZOLE 40MG DR TABLET PO SCH (07:57)
[2019-06-21] MEDS ORDERED: SODIUM CHLORIDE 0.9% 100 ML IV ONE (12:15)
[2019-06-21 13:08] LABS: CHLORIDE 116 mEq/L (98-107)
[2019-06-21] MEDS: LORAZEPAM 0.5MG TABLET PO PRN (15:10)
[2019-06-21 16:49] LABS: CHLORIDE 117 mEq/L (98-107)
[2019-06-21] MEDS ORDERED: DEXTROSE 50% WATER 50ML SYRINGE IV PRN (18:45)
[2019-06-21] MEDS: ENOXAPARIN 40MG/0.4ML SYR SUBCUT SCH (20:41)
[2019-06-21] MEDS: INSULIN LISPRO 100 UNITS/ML SUBCUT SCH (20:45)
[2019-06-21] MEDS ORDERED: POTASSIUM CHLORIDE 20MEQ/PACKET PO NR (21:32)
[2019-06-21] MEDS ORDERED: INSULIN GLARGINE UD 100 UNITS/ML SYR SUBCUT SCH (22:00)
[2019-06-22] VITALS (20 sets, daily range): BP systolic 109–136; BP diastolic 70–98
[2019-06-22] MEDS: HYDROCODONE/ACETAMINOPHEN 5/325MG TABLET PO PRN (00:08)
[2019-06-22] MEDS: METOCLOPRAMIDE HCL 10MG/2ML VIAL IV SCH ×3 (00:08→12:08)
[2019-06-22] MEDS: PIPERACILLIN/TAZOBACTAM 3.375 G in DEXT 5% WATER 100 ML IV SCH ×3 (00:09→12:07)
[2019-06-22 00:22] LABS: CHLORIDE 116 mEq/L (98-107)
[2019-06-22] MEDS: MORPHINE SULFATE 2 MG/ML CPJ (NOT FOR IM USE) IV PRN ×4 (01:02→13:24)
[2019-06-22 05:39] LABS: CHLORIDE 114 mEq/L (98-107)
[2019-06-22 05:40] LABS: BASOPHILS % 0.9 % (0.0-2.0); EOSINOPHILS % 1.5 % (0.0-5.0); HEMATOCRIT. 28.2 % (36.0-48.0); HEMOGLOBIN. 9.2 g/dL (12.0-16.0); LYMPHOCYTES % 42.8 % (20.0-50.0); MEAN CORPUSCULAR HEMOGLOBIN 25.5 pg (28.0-32.0); MEAN CORPUSCULAR VOLUME 78.3 fL (81.0-99.0); MEAN PLATELET VOLUME 7.3 fl (7.4-10.4); MONOCYTES % 7.1 % (2.0-8.0); NEUTROPHILS % 47.7 % (40.0-76.0); PLATELET 183 x1000/uL (130-400); RED CELL DISTRIBUTION WIDTH 18.5 % (11.6-14.6)
[2019-06-22] MEDS: BLOOD SUGAR DIAGNOSTIC STRIP TEST SCH ×2 (07:49→12:11)
[2019-06-22] MEDS: SUCRALFATE 1 G/10 ML UDC PO SCH ×2 (08:03→12:07)
[2019-06-22] MEDS: QUETIAPINE FUMARATE 50MG TABLET PO SCH (08:03)
[2019-06-22] MEDS: PANTOPRAZOLE 40MG DR TABLET PO SCH (08:03)
[2019-06-22] MEDS: INSULIN LISPRO 100 UNITS/ML SUBCUT SCH ×2 (08:05→12:12)
== END 2019-06-22 18:30 | disposition home or self-care (01) | DRG 420 ==
LOC: ER 15:50 → CVICU 18:17 → EDBEDREQTM 18:23 → EDBEDREQ 18:23 → ENRESERV 19:08 → 6WST 06-22 10:19
PROVIDERS: ADMIT Internal Medicine; ATTEND Internal Medicine
DX: E11.10 Type 2 diabetes mellitus with ketoacidosis without coma (principal); E87.8 Other disorders of electrolyte and fluid balance, not elsewhere classified; E87.5 Hyperkalemia; E11.43 Type 2 diabetes mellitus with diabetic autonomic (poly)neuropathy; E87.1 Hypo-osmolality and hyponatremia; E86.0 Dehydration; D72.829 Elevated white blood cell count, unspecified; R00.0 Tachycardia, unspecified; K25.9 Gastric ulcer, unspecified as acute or chronic, without hemorrhage or perforation; K31.84 Gastroparesis; R80.9 Proteinuria, unspecified; K44.9 Diaphragmatic hernia without obstruction or gangrene; Z79.891 Long term (current) use of opiate analgesic; Z79.4 Long term (current) use of insulin; Z79.899 Other long term (current) drug therapy; Z87.11 Personal history of peptic ulcer disease
CPT/HCPCS: 36415; 36600; 71045; 80048; 80053; 80305; 80320; 81003; 82010; 82375; 82550; 82553; 82805; 82962; 83036; 83605; 83735; 84100; 84145; 84443; 84484; 84703; 85025; 93005; 93970; 96361; 96365; 96375; 96376; 99285; J1650; J1815; J1885; J2060; J2270; J2405; J2543; J2765; J7030; J7050; J7060; G0480

== ENCOUNTER 2019-06-29 18:51 | Inpatient (IN) | payer MEDICAID ==
[~2019-06-29] VITALS: Ht 162.6 cm; Wt 65.9 kg
[2019-06-29] MEDS ORDERED: SODIUM CHLORIDE 0.9% 1,000 ML IV ONE ×4 (19:01→20:00)
[2019-06-29] MEDS ORDERED: ONDANSETRON HCL 4MG/2ML INJ IV STA (19:01)
[2019-06-29 19:36] LABS: INR 0.9; PROTHROMBIN TIME 10.1 sec (9.6-11.0)
[2019-06-29 19:38] LABS: HEMATOCRIT. 45.3 % (36.0-48.0); HEMOGLOBIN. 11.2 g/dL (12.0-16.0); MEAN CORPUSCULAR HEMOGLOBIN 25.1 pg (28.0-32.0); MEAN CORPUSCULAR VOLUME 101.5 fL (81.0-99.0); MEAN PLATELET VOLUME 8.4 fl (7.4-10.4); PLATELET 426 x1000/uL (130-400); RED BLOOD CELL COUNT 4.46 mill/uL (4.2-5.4); RED CELL DISTRIBUTION WIDTH 19.5 % (11.6-14.6)
[2019-06-29 19:41] LABS: CHLORIDE 80 mEq/L (98-107)
[2019-06-29 19:56] LABS: CLARITY URINE CLEAR (CLEAR); COLOR URINE YELLOW (YELLOW); KETONES URINE 4+ (NEGATIVE); LEUKOCYTE ESTERASE URINE NEGATIVE (NEGATIVE); NITRITE URINE NEGATIVE (NEGATIVE); OCCULT BLOOD URINE TRACE (NEGATIVE); PROTEIN URINE 2+ (NEGATIVE); SPECIFIC GRAVITY URINE 1.026 (1.005-1.030); UROBILINOGEN URINE 0.2 E.U./dL (0.2-1.0)
[2019-06-29] MEDS ORDERED: SODIUM BICARBONATE 8.4% 1 MEQ/ML 50ML SYR IV ONE ×2 (20:00→22:00)
[2019-06-29] MEDS ORDERED: INSULIN REGULAR (HUMULIN R) 300UNITS/3ML IV ONE ×2 (20:00→22:00)
[2019-06-29] MEDS ORDERED: CALCIUM CHLORIDE 1GM/10ML SYR IV ONE ×2 (20:00→22:00)
[2019-06-29 20:10] LABS: BG CARBOXYHEMOGLOBIN 0.3 % (0.5-1.5); BG DEOXYHEMOGLOBIN 1.9 % (0.0-5.0); BG FRACTION INSPIRED OXYGEN 28; BG METHEMOGLOBIN 0.3 % (0.0-1.5); BG OXYGEN SATURATION 98.1 % (92.0-98.5); BG OXYHEMOGLOBIN 97.5 % (94.0-97.0); BG PCO2 < 8.9 mmHg (35.0-45.0); BG PH 6.857 (7.350-7.450); BG PO2 158.8 mmHg (75.0-100.0); BG SAMPLE SITE LEFT RADIAL; BG TOTAL HEMOGLOBIN 9.5 g/dL (12.0-18.0); BG VENT MODE NASAL CANNULA
[2019-06-29 20:20] LABS: PLATELET ESTIMATE SLIGHTLY INCREASED
[2019-06-29 20:45] LABS: PHOSPHORUS 9.7 mg/dL (2.5-4.9)
[2019-06-29] MEDS ORDERED: INSULIN REGULAR (DRIP) 100 UNITS in SODIUM CHLORIDE 0.9% 100 ML IV NR (21:00)
[2019-06-29] MEDS ORDERED: LORAZEPAM 2MG/ML CPJ ONE (21:14)
[2019-06-29] MEDS ORDERED: SUCCINYLCHOLINE CHLORIDE 200MG/10ML IV ONE (21:14)
[2019-06-29] MEDS ORDERED: ETOMIDATE 2MG/ML 10ML VIAL IV ONE (21:14)
[2019-06-29] MEDS ORDERED: FENTANYL CITRATE/PF 500 MCG in SODIUM CHLORIDE 0.9% 40 ML IV PRN ×4 (21:15)
[2019-06-29] MEDS ORDERED: LORAZEPAM 2MG/ML CPJ IV ONE (21:15)
[2019-06-29] MEDS ORDERED: MIDAZOLAM HCL 50 MG in DEXTROSE 5% WATER 40 ML IV ONE ×4 (21:15)
[2019-06-29] MEDS ORDERED: CEFTRIAXONE 1 G PREMIX 50 ML IV NR (22:00)
[2019-06-29 22:09] LABS: PHOSPHORUS 8.6 mg/dL (2.5-4.9)
[2019-06-29] MEDS ORDERED: LORAZEPAM 2MG/ML CPJ IV PRN (23:00)
[2019-06-29] MEDS ORDERED: DOCUSATE SODIUM 100MG CAPSULE PO PRN (23:00)
[2019-06-29] MEDS ORDERED: ONDANSETRON HCL 4MG/2ML INJ IV PRN (23:00)
[2019-06-29] MEDS ORDERED: GUAIFENESIN 200MG/10ML SUGAR FREE UDC PO PRN (23:00)
[2019-06-29] MEDS ORDERED: PIPERACILLIN/TAZ 3.375G PREMIX 50 ML IV SCH (23:00)
[2019-06-29] MEDS ORDERED: INSULIN REGULAR (DRIP) 100 UNITS in SODIUM CHLORIDE 0.9% 100 ML IV SCH (23:00)
[2019-06-29] MEDS ORDERED: DIPHENHYDRAMINE 50MG/ML VIAL IV PRN (23:00)
[2019-06-29] MEDS ORDERED: IPRATROPIUM/ALBUTEROL 0.5-3(2.5)MG/3ML NEB NEB PRN (23:00)
[2019-06-29] MEDS ORDERED: ACETAMINOPHEN 325MG TABLET PO PRN (23:00)
[2019-06-29] MEDS ORDERED: NA PHOS,M-B/NA PHOS,DI-BA ENEMA 118ML PR PRN (23:00)
[2019-06-29] MEDS ORDERED: MAGNESIUM/ALUMINUM HYDROXIDE/SIMETHICONE 30ML UDC PO PRN (23:00)
[2019-06-29 23:57] LABS: BG BASE EXCESS -21.9 mmol/L (-2.0-2.0); BG CARBOXYHEMOGLOBIN 0.2 % (0.5-1.5); BG DEOXYHEMOGLOBIN 0.6 % (0.0-5.0); BG FRACTION INSPIRED OXYGEN 50; BG METHEMOGLOBIN 0.2 % (0.0-1.5); BG OXYGEN SATURATION 99.4 % (92.0-98.5); BG PCO2 15.3 mmHg (35.0-45.0); BG PH 7.135 (7.350-7.450); BG PO2 238.3 mmHg (75.0-100.0); BG SAMPLE SITE RIGHT RADIAL; BG TOTAL HEMOGLOBIN 11.8 g/dL (12.0-18.0); BG VENT MODE VENT - A/C; BG VENT RATE 30 set
[2019-06-30] VITALS (31 sets, daily range): BP systolic 112–162; BP diastolic 58–108
[2019-06-30 00:20] LABS: BASOPHILS % 0.6 % (0.0-2.0); EOSINOPHILS % 0.1 % (0.0-5.0); HEMATOCRIT. 47.3 % (36.0-48.0); HEMOGLOBIN. 13.4 g/dL (12.0-16.0); LYMPHOCYTES % 11.8 % (20.0-50.0); MEAN CORPUSCULAR HEMOGLOBIN 25.1 pg (28.0-32.0); MEAN CORPUSCULAR VOLUME 88.7 fL (81.0-99.0); MEAN PLATELET VOLUME 8.3 fl (7.4-10.4); MONOCYTES % 9.9 % (2.0-8.0); NEUTROPHILS % 77.6 % (40.0-76.0); PLATELET 361 x1000/uL (130-400); RED BLOOD CELL COUNT 5.33 mill/uL (4.2-5.4); RED CELL DISTRIBUTION WIDTH 19.4 % (11.6-14.6)
[2019-06-30 00:50] LABS: PHOSPHORUS 8.6 mg/dL (2.5-4.9)
[2019-06-30] MEDS ORDERED: SODIUM BICARBONATE 8.4% 1 MEQ/ML 50ML SYR IV NR (01:30)
[2019-06-30] MEDS ORDERED: DEXTROSE 50% WATER 50ML SYRINGE IV PRN ×3 (01:45→11:15)
[2019-06-30] MEDS: BLOOD SUGAR DIAGNOSTIC STRIP TEST SCH ×12 (02:09→23:20)
[2019-06-30] MEDS: FENTANYL CITRATE/PF 500 MCG in SODIUM CHLORIDE 0.9% 40 ML IV PRN ×2 (02:11→07:18)
[2019-06-30] MEDS: PROPOFOL 10MG/ML 100ML 100 ML IV PRN ×5 (02:15→20:49)
[2019-06-30] MEDS ORDERED: SODIUM CHLORIDE 0.45% 1,000 ML IV SCH (02:30)
[2019-06-30] MEDS ORDERED: INSULIN REGULAR (DRIP) 100 UNITS in SODIUM CHLORIDE 0.9% 100 ML IV SCH (03:00)
[2019-06-30 04:40] LABS: CHLORIDE 116 mEq/L (98-107)
[2019-06-30 04:41] LABS: BASOPHILS % 0.5 % (0.0-2.0); HEMATOCRIT. 36.5 % (36.0-48.0); HEMOGLOBIN. 11.3 g/dL (12.0-16.0); LYMPHOCYTES % 13.5 % (20.0-50.0); MEAN CORPUSCULAR VOLUME 80.4 fL (81.0-99.0); MEAN PLATELET VOLUME 7.8 fl (7.4-10.4); MONOCYTES % 8.2 % (2.0-8.0); NEUTROPHILS % 77.8 % (40.0-76.0); PLATELET 314 x1000/uL (130-400); RED BLOOD CELL COUNT 4.54 mill/uL (4.2-5.4); RED CELL DISTRIBUTION WIDTH 18.6 % (11.6-14.6)
[2019-06-30 04:48] LABS: HDL CHOLESTEROL 93 mg/dL (40-59); LDL CHOLESTEROL 77 mg/dL (5-100); T4 FREE 0.84 ng/dL (0.76-1.46)
[2019-06-30 05:22] LABS: PHOSPHORUS 3.9 mg/dL (2.5-4.9)
[2019-06-30] MEDS: PIPERACILLIN/TAZOBACTAM 3.375 G in DEXT 5% WATER 100 ML IV SCH ×4 (05:52→23:20)
[2019-06-30] MEDS: CLONIDINE 0.1MG TABLET PO PRN ×2 (05:53→18:41)
[2019-06-30] MEDS: DEXT 5%/0.45% NACL 1000ML 1,000 ML IV SCH ×2 (08:41→15:55)
[2019-06-30 08:59] LABS: BG BASE EXCESS -4.7 mmol/L (-2.0-2.0); BG DEOXYHEMOGLOBIN 0.5 % (0.0-5.0); BG FRACTION INSPIRED OXYGEN 50; BG HCO3 ACT 17.4 mmol/L (22.0-26.0); BG METHEMOGLOBIN 0.3 % (0.0-1.5); BG OXYGEN SATURATION 99.5 % (92.0-98.5); BG OXYHEMOGLOBIN 99.2 % (94.0-97.0); BG PCO2 24.2 mmHg (35.0-45.0); BG PH 7.475 (7.350-7.450); BG PO2 276.6 mmHg (75.0-100.0); BG SAMPLE SITE RIGHT RADIAL; BG TIDAL VOLUME(mL) 450 mL; BG TOTAL HEMOGLOBIN 11.1 g/dL (12.0-18.0); BG VENT MODE VENT - A/C; BG VENT RATE 24 set
[2019-06-30] MEDS ORDERED: ASPIRIN 81MG EC TABLET PO SCH (09:00)
[2019-06-30] MEDS ORDERED: ENOXAPARIN 40MG/0.4ML SYR SUBCUT SCH (09:00)
[2019-06-30] MEDS: INSULIN GLARGINE UD 100 UNITS/ML SYR SUBCUT SCH (11:39)
[2019-06-30] MEDS: INSULIN LISPRO 100 UNITS/ML SUBCUT SCH ×3 (13:02→23:21)
[2019-06-30 14:07] LABS: BG BASE EXCESS -3.7 mmol/L (-2.0-2.0); BG CARBOXYHEMOGLOBIN 0.3 % (0.5-1.5); BG DEOXYHEMOGLOBIN 1.2 % (0.0-5.0); BG FRACTION INSPIRED OXYGEN 35; BG METHEMOGLOBIN 0.2 % (0.0-1.5); BG OXYGEN SATURATION 98.8 % (92.0-98.5); BG OXYHEMOGLOBIN 98.3 % (94.0-97.0); BG PH 7.414 (7.350-7.450); BG PO2 146.4 mmHg (75.0-100.0); BG SAMPLE SITE RIGHT RADIAL; BG TIDAL VOLUME(mL) 450 mL; BG TOTAL HEMOGLOBIN 11.3 g/dL (12.0-18.0); BG VENT MODE VENT - A/C; BG VENT RATE 18 set
[2019-06-30 17:11] LABS: *AMPHETAMINES SCREEN URINE NEGATIVE (NEGATIVE); *BARBITURATES SCREEN URINE NEGATIVE (NEGATIVE); *COCAINE SCREEN URINE NEGATIVE (NEGATIVE)
[2019-06-30 17:12] LABS: METHADONE URINE SCREEN NEGATIVE (NEGATIVE); OPIATES URINE SCREEN NEGATIVE (NEGATIVE); PHENCYCLIDINE URINE SCREEN NEGATIVE (NEGATIVE)
[2019-06-30 17:35] LABS: *BENZODIAZEPINES SCREEN URINE PRESUMTIVE POSITIVE (NEGATIVE); CANNABINOID URINE SCREEN PRESUMTIVE POSITIVE (NEGATIVE)
[2019-06-30] MEDS: PANTOPRAZOLE SODIUM 40 MG/VIAL IV SCH (20:45)
[2019-07-01] VITALS (37 sets, daily range): BP systolic 103–151; BP diastolic 75–109
[2019-07-01] MEDS: FENTANYL CITRATE/PF 500 MCG in SODIUM CHLORIDE 0.9% 40 ML IV PRN (01:16)
[2019-07-01] MEDS: DEXT 5%/0.45% NACL 1000ML 1,000 ML IV SCH ×3 (01:21→17:53)
[2019-07-01] MEDS: PROPOFOL 10MG/ML 100ML 100 ML IV PRN ×2 (04:14→09:15)
[2019-07-01] MEDS: PIPERACILLIN/TAZOBACTAM 3.375 G in DEXT 5% WATER 100 ML IV SCH ×4 (05:28→23:28)
[2019-07-01] MEDS: INSULIN LISPRO 100 UNITS/ML SUBCUT SCH ×4 (05:34→20:47)
[2019-07-01] MEDS: BLOOD SUGAR DIAGNOSTIC STRIP TEST SCH ×4 (05:35→20:46)
[2019-07-01 05:55] LABS: BASOPHILS % 0.6 % (0.0-2.0); EOSINOPHILS % 0.3 % (0.0-5.0); HEMATOCRIT. 30.7 % (36.0-48.0); LYMPHOCYTES % 13.7 % (20.0-50.0); MEAN CORPUSCULAR HEMOGLOBIN 25.1 pg (28.0-32.0); MEAN PLATELET VOLUME 7.2 fl (7.4-10.4); NEUTROPHILS % 79.4 % (40.0-76.0); PLATELET 213 x1000/uL (130-400); RED BLOOD CELL COUNT 3.98 mill/uL (4.2-5.4); RED CELL DISTRIBUTION WIDTH 18.8 % (11.6-14.6)
[2019-07-01 06:01] LABS: CHLORIDE 111 mEq/L (98-107)
[2019-07-01 06:11] LABS: TOTAL IRON BINDING CAPACITY 303 ug/dL (250-450)
[2019-07-01 06:13] LABS: CREATINE KINASE 482 IU/L (26-192)
[2019-07-01 08:49] LABS: BG BASE EXCESS -1.3 mmol/L (-2.0-2.0); BG CARBOXYHEMOGLOBIN 0.3 % (0.5-1.5); BG DEOXYHEMOGLOBIN 1.3 % (0.0-5.0); BG FRACTION INSPIRED OXYGEN 30; BG HCO3 ACT 22.4 mmol/L (22.0-26.0); BG METHEMOGLOBIN 0.2 % (0.0-1.5); BG OXYGEN SATURATION 98.7 % (92.0-98.5); BG OXYHEMOGLOBIN 98.2 % (94.0-97.0); BG PCO2 34.2 mmHg (35.0-45.0); BG PH 7.435 (7.350-7.450); BG PO2 141.3 mmHg (75.0-100.0); BG SAMPLE SITE RIGHT RADIAL; BG TIDAL VOLUME(mL) 450 mL; BG TOTAL HEMOGLOBIN 10.4 g/dL (12.0-18.0); BG VENT MODE VENT - A/C; BG VENT RATE 18 set
[2019-07-01] MEDS ORDERED: POTASSIUM CHLORIDE INJ 40 MEQ in DEXT 5% WATER 250 ML IV NR (09:00)
[2019-07-01] MEDS: PANTOPRAZOLE SODIUM 40 MG/VIAL IV SCH ×2 (09:03→20:46)
[2019-07-01] MEDS: INSULIN GLARGINE UD 100 UNITS/ML SYR SUBCUT SCH (09:03)
[2019-07-01] MEDS: CLONIDINE 0.1MG TABLET PO PRN (09:13)
[2019-07-01 12:04] LABS: BG BASE EXCESS -1.7 mmol/L (-2.0-2.0); BG CARBOXYHEMOGLOBIN 0.3 % (0.5-1.5); BG DEOXYHEMOGLOBIN 1.5 % (0.0-5.0); BG FRACTION INSPIRED OXYGEN 30; BG HCO3 ACT 21.8 mmol/L (22.0-26.0); BG METHEMOGLOBIN 0.3 % (0.0-1.5); BG OXYGEN SATURATION 98.5 % (92.0-98.5); BG OXYHEMOGLOBIN 97.9 % (94.0-97.0); BG PCO2 32.3 mmHg (35.0-45.0); BG PH 7.447 (7.350-7.450); BG PRESSURE SUPPORT 8; BG SAMPLE SITE RIGHT RADIAL; BG TOTAL HEMOGLOBIN 10.4 g/dL (12.0-18.0); BG VENT MODE VENT - CPAP
[2019-07-01] MEDS ORDERED: THROAT LOZENGES-BENZOCAINE/MENTH/CETYLPYRD CL LOZENGES MM PRN (13:00)
[2019-07-01] MEDS: MORPHINE SULFATE 2 MG/ML CPJ (NOT FOR IM USE) IV PRN ×3 (13:17→23:29)
[2019-07-01] MEDS: FERROUS SULFATE 325MG TABLET PO SCH (17:52)
[2019-07-02] VITALS (33 sets, daily range): BP systolic 93–169; BP diastolic 46–113
[2019-07-02] MEDS: DEXT 5%/0.45% NACL 1000ML 1,000 ML IV SCH (03:35)
[2019-07-02] MEDS: PIPERACILLIN/TAZOBACTAM 3.375 G in DEXT 5% WATER 100 ML IV SCH ×3 (05:03→17:27)
[2019-07-02] MEDS: MORPHINE SULFATE 2 MG/ML CPJ (NOT FOR IM USE) IV PRN ×3 (05:03→14:28)
[2019-07-02 06:53] LABS: BASOPHILS % 0.5 % (0.0-2.0); EOSINOPHILS % 1.4 % (0.0-5.0); HEMATOCRIT. 27.8 % (36.0-48.0); HEMOGLOBIN. 8.9 g/dL (12.0-16.0); LYMPHOCYTES % 19.9 % (20.0-50.0); MEAN CORPUSCULAR HEMOGLOBIN 25.1 pg (28.0-32.0); MEAN PLATELET VOLUME 6.9 fl (7.4-10.4); MONOCYTES % 5.8 % (2.0-8.0); NEUTROPHILS % 72.4 % (40.0-76.0); PLATELET 145 x1000/uL (130-400); RED BLOOD CELL COUNT 3.56 mill/uL (4.2-5.4); RED CELL DISTRIBUTION WIDTH 19.6 % (11.6-14.6)
[2019-07-02 07:04] LABS: CHLORIDE 108 mEq/L (98-107)
[2019-07-02] MEDS: FERROUS SULFATE 325MG TABLET PO SCH ×3 (08:30→17:27)
[2019-07-02] MEDS: PANTOPRAZOLE SODIUM 40 MG/VIAL IV SCH ×2 (08:30→21:24)
[2019-07-02] MEDS: INSULIN LISPRO 100 UNITS/ML SUBCUT SCH ×4 (08:35→21:25)
[2019-07-02] MEDS: BLOOD SUGAR DIAGNOSTIC STRIP TEST SCH ×4 (08:35→21:00)
[2019-07-02] MEDS ORDERED: POTASSIUM CHLORIDE INJ 60 MEQ in DEXT 5% WATER 500 ML IV NR (10:00)
[2019-07-02] MEDS: INSULIN GLARGINE UD 100 UNITS/ML SYR SUBCUT SCH (10:10)
[2019-07-02] MEDS: SODIUM CHLORIDE 0.9% 1,000 ML IV SCH (12:57)
[2019-07-02] MEDS ORDERED: POTASSIUM CHLORIDE 20MEQ TABLET SR PO SCH ×2 (15:00→20:00)
[2019-07-02] MEDS: HYDROCODONE/ACETAMINOPHEN 5/325MG TABLET PO PRN (19:37)
[2019-07-03] VITALS (13 sets, daily range): BP systolic 89–142; BP diastolic 61–100
[2019-07-03] MEDS: PIPERACILLIN/TAZOBACTAM 3.375 G in DEXT 5% WATER 100 ML IV SCH ×5 (00:08→23:10)
[2019-07-03] MEDS ORDERED: POTASSIUM CHLORIDE 20MEQ TABLET SR PO SCH (00:45)
[2019-07-03] MEDS: SODIUM CHLORIDE 0.9% 1,000 ML IV SCH (05:38)
[2019-07-03] MEDS: BLOOD SUGAR DIAGNOSTIC STRIP TEST SCH ×4 (06:30→20:05)
[2019-07-03] MEDS: INSULIN LISPRO 100 UNITS/ML SUBCUT SCH ×4 (07:06→20:08)
[2019-07-03] MEDS: FERROUS SULFATE 325MG TABLET PO SCH (08:22)
[2019-07-03] MEDS: PANTOPRAZOLE SODIUM 40 MG/VIAL IV SCH ×2 (08:22→20:05)
[2019-07-03] MEDS: IRON SUCROSE COMPLEX 100 MG/5 ML ML IV SCH (09:38)
[2019-07-03 10:18] LABS: BASOPHILS % 0.7 % (0.0-2.0); EOSINOPHILS % 1.8 % (0.0-5.0); HEMATOCRIT. 31.5 % (36.0-48.0); HEMOGLOBIN. 10.2 g/dL (12.0-16.0); LYMPHOCYTES % 34.3 % (20.0-50.0); MEAN CORPUSCULAR HEMOGLOBIN 25.4 pg (28.0-32.0); MEAN CORPUSCULAR VOLUME 78.4 fL (81.0-99.0); MEAN PLATELET VOLUME 7.5 fl (7.4-10.4); MONOCYTES % 8.1 % (2.0-8.0); NEUTROPHILS % 55.1 % (40.0-76.0); PLATELET 154 x1000/uL (130-400); RED BLOOD CELL COUNT 4.01 mill/uL (4.2-5.4)
[2019-07-03 10:39] LABS: CHLORIDE 110 mEq/L (98-107)
[2019-07-03] MEDS: INSULIN GLARGINE UD 100 UNITS/ML SYR SUBCUT SCH (12:14)
[2019-07-03] MEDS: HYDROCODONE/ACETAMINOPHEN 5/325MG TABLET PO PRN ×2 (12:15→21:33)
[2019-07-04] VITALS (8 sets, daily range): BP systolic 123–154; BP diastolic 69–97
[2019-07-04] MEDS: PIPERACILLIN/TAZOBACTAM 3.375 G in DEXT 5% WATER 100 ML IV SCH (05:24)
[2019-07-04] MEDS: BLOOD SUGAR DIAGNOSTIC STRIP TEST SCH ×2 (06:08→12:25)
[2019-07-04] MEDS: INSULIN LISPRO 100 UNITS/ML SUBCUT SCH ×2 (06:09→11:50)
[2019-07-04 06:13] LABS: BASOPHILS % 0.7 % (0.0-2.0); EOSINOPHILS % 2.4 % (0.0-5.0); HEMATOCRIT. 28.3 % (36.0-48.0); HEMOGLOBIN. 9.2 g/dL (12.0-16.0); LYMPHOCYTES % 36.3 % (20.0-50.0); MEAN CORPUSCULAR HEMOGLOBIN 25.4 pg (28.0-32.0); MEAN PLATELET VOLUME 7.5 fl (7.4-10.4); MONOCYTES % 7.2 % (2.0-8.0); NEUTROPHILS % 53.4 % (40.0-76.0); PLATELET 180 x1000/uL (130-400); RED BLOOD CELL COUNT 3.63 mill/uL (4.2-5.4); RED CELL DISTRIBUTION WIDTH 19.2 % (11.6-14.6)
[2019-07-04 06:22] LABS: CHLORIDE 110 mEq/L (98-107)
[2019-07-04] MEDS: PANTOPRAZOLE SODIUM 40 MG/VIAL IV SCH (08:21)
[2019-07-04] MEDS: IRON SUCROSE COMPLEX 100 MG/5 ML ML IV SCH (08:21)
[2019-07-04] MEDS ORDERED: POTASSIUM CHLORIDE 20MEQ TABLET SR PO SCH (08:30)
[2019-07-04] MEDS: INSULIN GLARGINE UD 100 UNITS/ML SYR SUBCUT SCH (10:00)
[2019-07-04] MEDS ORDERED: SUCRALFATE 1 G/10 ML UDC PO SCH (11:50)
[2019-07-04] MEDS ORDERED: METOCLOPRAMIDE HCL 10MG TABLET PO SCH (12:00)
[2019-07-04] MEDS ORDERED: FERROUS SULFATE 325MG TABLET PO SCH (12:20)
== END 2019-07-04 13:30 | disposition home or self-care (01) | DRG 720 ==
LOC: ER 18:51 → CVICU 21:50 → EDUNIT# 21:50 → EDBEDREQ 21:52 → EDBEDREQSVC 21:52 → EDBEDREQTM 21:52 → ENRESERV 22:05 → 3WST 07-02 16:06
PROVIDERS: ADMIT Internal Medicine; ATTEND Internal Medicine
PROC: 5A1945Z Respiratory Ventilation, 24-96 Consecutive Hours (ICD-10-PCS; principal; 2019-06-29)
PROC: 0BH17EZ Insertion of Endotracheal Airway into Trachea, Via Natural or Artificial Opening (ICD-10-PCS; 2019-06-29)
DX: A41.9 Sepsis, unspecified organism (principal); J96.00 Acute respiratory failure, unspecified whether with hypoxia or hypercapnia; N17.0 Acute kidney failure with tubular necrosis; G93.41 Metabolic encephalopathy; E10.10 Type 1 diabetes mellitus with ketoacidosis without coma; K92.2 Gastrointestinal hemorrhage, unspecified; E87.1 Hypo-osmolality and hyponatremia; N39.0 Urinary tract infection, site not specified; E87.8 Other disorders of electrolyte and fluid balance, not elsewhere classified; E87.5 Hyperkalemia; E87.6 Hypokalemia; R74.8 Abnormal levels of other serum enzymes; D50.9 Iron deficiency anemia, unspecified; Z79.4 Long term (current) use of insulin; Z91.14 Patient's other noncompliance with medication regimen; Z91.19 Patient's noncompliance with other medical treatment and regimen
CPT/HCPCS: 36415; 36600; 71045; 80048; 80053; 80061; 80305; 81003; 82375; 82550; 82728; 82805; 82962; 83036; 83540; 83550; 83605; 83735; 84100; 84132; 84145; 84439; 84443; 84478; 84484; 85025; 87070; 93005; 94002; 94003; 99291; C9113; J0330; J0696; J1200; J1650; J1815; J2060; J2250; J2270; J2405; J2543; J2704; J3010; J3480; J3490; J7030; J7050; J7060; J8597